=== PATIENT | male | born 1965 | race Caucasian/White ===

== ENCOUNTER → 2023-02-08 14:22 | Outpatient (BNVA) | payer MEDICAID, SELFPAY | PROVIDERS: PCP Nurse Practitioner; Visit Provider Internal Medicine Hypertension Specialist | DX: R10.9 Unspecified abdominal pain (principal) | CPT/HCPCS: 99212 ==

== ENCOUNTER 2023-02-08 14:23 | Outpatient (AMB) | payer MEDICAID, SELFPAY ==
[2023-02-08 14:23] VITALS: BP 122/88; PULSE 84; O2SAT 99; BMI 23.4
--- NOTE | 2023-02-08 14:23 | HO.NEPHOV_ITS ---
HPI HPI Comments History of Present Illness Details Middle-aged man with multiple somatic complaints history of for follow- up. At present he has no specific urinary complaints No polyuria polydipsia. No hematuria. He was recently worked up for abdominal pain and was found to have constipation. He has been prescribed laxatives which he is yet to start taking. PFSH Family History Mother Liver cancer Maternal Grandmother Breast cancer Social History Household Members Other:: Aunt Housing: House Alcohol intake: current Alcohol intake frequency: a few times a week Alcohol type: beer and wine Patient Tobacco Use Status: Never used Tobacco e-Cigarette/Vaping Use: Never Used Vital Signs 02/08/23 14:23 Height 5 ft 8 in Weight 154 lb 2 oz BMI 23.4 BP 122/88 Blood Pressure Location Lt brachial Position Sitting Pulse 84 Pulse Source Pulse Oximeter Pulse Oximetry (%) 99 Oxygen Delivery Method Room Air Physical Exam Vital Signs: Last Vital Signs Pulse 84 02/08/23 14:23 BP 122/88 02/08/23 14:23 Pulse Ox 99 02/08/23 14:23 Oxygen Delivery Method Room Air 02/08/23 14:23 BMI result Body Mass Index 23.4 Const General: comfortable Nutritional Appearance: well nourished Orientation/consciousness: patient oriented x3 HEENT Head: No normal to inspection Mouth: moist mucous membranes Eyes General: appearance normal, both eyes and all related structures Visual Mandel: normal visual mandel by confrontation Neck Neck: Yes supple and Yes no JVD Resp Effort & Inspection: normal respiratory effort and respiratory effort not decreased Auscultation: clear to auscultation bilaterally, no rales and rub present Cardio Jugular venous distension: no JVD Palpation: no palpable S3 and no palpable S4 Heart sounds: no rubs GI Inspection: Yes normal to inspection Palpation (GI): Soft to palpation and nontender Percussion: No Fluid wave present Auscultation: normal bowel sounds General: Yes no CVA tenderness Back/Spine/Pelvis Back: no CVA tenderness Skin General skin exam: no rashes or lesions noted Neuro General: patient oriented x3 Extrem General: Yes no pedal edema and No clubbing Assessment & Plan Assessment & Plan (1) Abdominal pain: Code(s): R10.9 - Unspecified abdominal pain Plan Middle-aged man with multiple somatic complaints. His abdominal pain likely due to constipation. He has no signs or symptoms of acute abdomen. I encouraged him to start taking the laxatives. Renal function has been stable. Blood pressure is acceptable. No changes are made today. Coding Level of Care Code Est Pt Level 2 (87267) Diagnoses Abdominal pain R10.9 Results Reviewed Results Reviewed: No recent lab results found Nephrology Results: No Data to Display
== END 2023-02-08 14:44 | disposition home or self-care (01) ==
PROVIDERS: PCP Nurse Practitioner; Visit Provider Internal Medicine Hypertension Specialist
DX: R10.9 Unspecified abdominal pain (principal)
CPT/HCPCS: 99212

== ENCOUNTER 2023-08-30 09:22 | Outpatient (AMB) | payer MEDICAID, SELFPAY ==
[2023-08-30 09:24] VITALS: BP 156/96; PULSE 99; O2SAT 98; BMI 24.2
--- NOTE | 2023-08-30 09:24 | HO.NEPHOV ---
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 At present he has no specific urinary complaints No polyuria polydipsia. No hematuria. He was recently worked up for abdominal pain and was found to have constipation. He has been prescribed laxatives which he is yet to start taking. 08/30/2023. Luís recently had an episode of gout on the left thumb. He was in [facility]. Serum creatinine was 1.11. He was given indomethacin and pain and swelling have improved [facility] Medical History (Updated 08/30/23 @ 09:41 by Edilberto Bustos MD) Fracture, mandible Surgical History History of arthroplasty of knee Family History Mother Liver cancer Maternal Grandmother Breast cancer Father Diabetes Hypertension Heart disease Social History Household Members Other:: Aunt Housing: House Alcohol intake: current Alcohol intake frequency: a few times a week Alcohol type: beer and wine Patient Tobacco Use Status: Never used Tobacco e-Cigarette/Vaping Use: Never Used Review of Systems Const Denies fever(s) and Denies weight loss Card Denies chest pain Resp Denies cough and Denies hemoptysis GI Denies abdominal pain, Denies diarrhea and Denies nausea Musc Denies back pain Neuro Denies focal weakness Physical Exam Vital Signs: Last Vital Signs Pulse 99 08/30/23 09:24 BP 156/96 H 08/30/23 09:24 Pulse Ox 98 08/30/23 09:24 Oxygen Delivery Method Room Air 08/30/23 09:24 BMI result Body Mass Index 24.2 Const General: comfortable; No acute distress Orientation/consciousness: patient oriented x3 Eyes General: appearance normal, both eyes and all related structures Visual Cohen: normal visual cohen by confrontation Neck Neck: Yes supple and Yes no JVD Resp Effort & Inspection: normal respiratory effort and respiratory effort not decreased Auscultation: rhonchi Cardio Palpation: no palpable S3 and no palpable S4 Heart sounds: no rubs GI Inspection: Yes normal to inspection Palpation (GI): Soft to palpation Percussion: Yes normal to percussion Auscultation: normal bowel sounds General: Yes no CVA tenderness Back/Spine/Pelvis Back: no CVA tenderness Skin General skin exam: no petechiae and no purpura Neuro General: patient oriented x3 and no focal motor deficits Extrem General: No clubbing and No edema Results Reviewed Results Reviewed: Labs from [facility] was reviewed as of August 2023 Serum electrolytes normal Serum creatinine 1.1 Nephrology Results: No Data to Display Assessment & Plan Assessment & Plan (1) CKD (chronic kidney disease): Code(s): N18.9 - Chronic kidney disease, unspecified Category: Medical (2) Abdominal pain: Code(s): R10.9 - Unspecified abdominal pain Category: Medical Plan Middle-aged man with history of multiple somatic complaints. History of abdominal pain likely due to constipation. Mild CKD Renal function has been stable. Creatinine is 1.1 Blood pressure is acceptable. No changes are made today. History of gout. Encouraged him to stay on a low purine diet Follow up with PCP Orders: Orders UA and rflx microscopic 11 Months N18.9 - Chronic kidney disease, unspecified Total Protein Urine Random 11 Months N18.9 - Chronic kidney disease, unspecified Creatinine Urine 11 Months N18.9 - Chronic kidney disease, unspecified Uric Acid 11 Months N18.9 - Chronic kidney disease, unspecified Basic Metabolic Panel 11 Months N18.9 - Chronic kidney disease, unspecified Complete Blood Count Auto Diff 11 Months N18.9 - Chronic kidney disease, unspecified Coding Level of Care Code Est Pt Level 4 (18272) Diagnoses CKD (chronic kidney disease) N18.9 Abdominal pain R10.9
== END 2023-08-30 09:45 | disposition home or self-care (01) ==
PROVIDERS: PCP Nurse Practitioner; Referring Provider Nurse Practitioner; Visit Provider Internal Medicine Hypertension Specialist
DX: N18.9 Chronic kidney disease, unspecified (principal); R10.9 Unspecified abdominal pain
CPT/HCPCS: 99214

== ENCOUNTER → 2023-08-30 09:22 | Outpatient (BNVA) | payer MEDICAID, SELFPAY | PROVIDERS: PCP Nurse Practitioner; Visit Provider Internal Medicine Hypertension Specialist | DX: R10.9 Unspecified abdominal pain (principal); N18.9 Chronic kidney disease, unspecified | CPT/HCPCS: 99212 ==

== ENCOUNTER 2023-11-14 11:16 | Outpatient (AMB) | payer MEDICAID, SELFPAY ==
--- NOTE | 2023-11-14 11:21 | MHC.OFFVIS ---
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 Denies any recent trauma, injury or falls. Patient reports history of back injections with good relief but can not recall if this was done at [facility] or [facility] Pain management. He completed spine imaging at [facility], this results are not available today. Patient was referred for lumbar spine MRI by his PCP but did not completed. Reports he completed physical therapy 3 years ago with minimal pain relief. Currently he is unable to pursue PT due to significant low back pain. Back pain is localized to lower back, worse on the right side and increases with bending, forward flexion, ROM, walking, and prolonged standing or sitting. Pain affects his daily functioning and mobility, mood, sleep, social interactions and quality of life. Denies previous spine surgery. He is awaiting hernia repair surgery. Patient also had recent gout exacerbation and uses indomethacin prn. Denies any fever or chills, weight loss, abdominal or groin pain, foot drop, bladder or bowel dysfunction or saddle anesthesia. Patient lives at home with his 2 adult sons who smoke and was recently diagnosed with asthma. Patient reports his temporary resides with his sister she undergoing treatments and upcoming bilateral lung transplant in [place] and requires smoke-free environment. Patient receives [facility] and takes public transportation. Location: Lower back, +gout pain (feet, thumb, elbow) Duration: Chronic pain for >15 years Characteristics of symptom or complaint: Shooting, throbbing, burning, stabbing, aching, radiating, spasming Aggravating or associated factors: Movements, bending, sitting, standing, movements, walking Relieving factors: Tried gabapentin, Tylenol, lidocaine patch, duloxetine, heat therapy Treatment: PT, back injections at [facility] or [facility] Medical History (Updated 11/14/23 @ 12:00 by JOHNY Correa) Subarachnoid hemorrhage Food insecurity Major depressive disorder Apneic episode Reactive airway disease without complication Constipation Hearing difficulty of both ears BPH (benign prostatic hyperplasia) Stage 3 chronic kidney disease Excessive anger Memory loss Swelling of left knee joint Vitamin D deficiency Carpal tunnel syndrome on both sides H/O head injury Chronic bilateral low back pain with bilateral sciatica Chronic gout of multiple sites Fracture, mandible Surgical History History of arthroplasty of knee Family History Mother Liver cancer Maternal Grandmother Breast cancer Father Diabetes Hypertension Heart disease Social History (Updated 11/14/23 @ 13:14 by JOHNY Correa) Household Members: Children Housing: House Alcohol intake: current Alcohol intake frequency: a few times a week Alcohol type: beer, wine and hard liquor Patient Tobacco Use Status: Never used Tobacco e-Cigarette/Vaping Use: Never Used Second Hand Smoke Exposure: Yes Review of Systems Const All systems reviewed & are unremarkable except as noted in HPI and below Physical Exam Vital Signs: Last Vital Signs Pulse Ox 97 11/14/23 11:26 Oxygen Delivery Method Room Air 11/14/23 11:26 BMI result Body Mass Index 23.6 General: Appears afebrile. Moderate distress due to back pain. Alert and oriented. Mood and affect appropriate. Follows and participates in conversation appropriately. Respiratory effort is unlabored. No cough. Able to transition from sit to stand unassisted. Ambulates with bilaterally normal heel strike and toe off. Antalgic gait, no limping. Unable to perform lumbar ROM due to pain. General: Yes no CVA tenderness Back/Spine/Pelvis Other: Limited lumbar ROM due to pain. Mildly antalgic gait. No limping. Lumbar flexion, axial rotations, and bending forward reproduces moderate pain. Demonstrates 5/5 strength of quadriceps bilaterally as well as flexion/dorsiflexion of bilateral feet against resistance. 2+ pedal pulses bilaterally. Seated straight leg rise with dorsiflexion positive bilaterally. +1 patellar and achilles reflexes bilaterally. Facet loading test positive bilaterally. Benjamín sign positive on the right, Kamaljit?s reproduces lateral hip pain, not back pain. No groin pain with I/E hip rotations. Valsalva maneuver negative. Back: no CVA tenderness Cervical Spine: loss of normal cervical lordosis, cervical muscular tenderness, pain with cervical ROM and No Cervical spine tenderness Thoracic/Lumbar Spine: thoracic and lumbar spine normal to inspection, No Thoracic/lumbar spine scar(s), Lasegue's sign positive (left>right in L5-S1 distribution) bilateral, pain with thoraco-lumbar ROM, paraspinal muscle tenderness, thoraco-lumbar ROM limited, thoracic spinal tenderness and lumbar spinal tenderness Pelvis: no buttock tenderness Sacroiliac joints: on the right tender to palpation and on the left nontender Results Reviewed Results Reviewed: No imaging reports are available for review. Assessment & Plan Assessment & Plan (1) Chronic bilateral low back pain with bilateral sciatica: Code(s): M54.42 - Lumbago with sciatica, left side; M54.41 - Lumbago with sciatica, right side; G89.29 - Other chronic pain Category: Medical (2) Lumbar spondylosis: Code(s): M47.816 - Spondylosis without myelopathy or radiculopathy, lumbar region Category: Medical (3) Lumbar degenerative disc disease: Code(s): M51.36 - Other intervertebral disc degeneration, lumbar region Category: Medical (4) Mid back pain: Code(s): M54.9 - Dorsalgia, unspecified Category: Medical Plan Obtain past medical records from [facility] management and [facility] to review past procedures and injections. Patient is not able to pursue physical therapy due to moderate-severe pain which affects his ADLs, mobility and sleep. Lumbar spine and SIJ imaging to assess degree of degenerative changes, any subluxation, listhesis, compression fractures or pars defects. MRI of the cervical and lumbar? spine to assess for neural integrity and compression. Patient requests imaging to be completed at [facility] closer to his home. Discussed interventional treatments for axial, discogenic and radicular symptoms. Continue Tylenol, lidocaine patches, gabapentin, heat therapy, activity modifications, good posture and adequate hydration. All questions and concerns have been answered and patient agreed with the plan. Follow up for MRI/xray results and sooner as needed. Orders: Orders MR lumbar spine wo con 11/14/23 G89.29 - Other chronic pain, M47.816 - Spondylosis without myelopathy or radiculopathy, lumbar region, M51.36 - Other intervertebral disc degeneration, lumbar region, M54.41 - Lumbago with sciatica, right side, M54.42 - Lumbago with sciatica, left side XR lumbar spine 4V min 11/14/23 G89.29 - Other chronic pain, M47.816 - Spondylosis without myelopathy or radiculopathy, lumbar region, M51.36 - Other intervertebral disc degeneration, lumbar region, M54.41 - Lumbago with sciatica, right side, M54.42 - Lumbago with sciatica, left side XR thoracic spine 3V 11/14/23 M54.9 - Dorsalgia, unspecified Coding Level of Care Code New Pt Level 4 (72696) Complex EM visit Add On G2211 Diagnoses Chronic bilateral low back pain with bilateral sciatica M54.42; M54.41; G89.29 Lumbar spondylosis M47.816 Lumbar degenerative disc disease M51.36 Mid back pain M54.9
[2023-11-14 11:26] VITALS: O2SAT 97; BMI 23.6
== END 2023-11-14 11:57 | disposition home or self-care (01) ==
PROVIDERS: PCP Nurse Practitioner; Visit Provider Nurse Practitioner Family
DX: M54.42 Lumbago with sciatica, left side (principal); M54.41 Lumbago with sciatica, right side; G89.29 Other chronic pain; M47.816 Spondylosis without myelopathy or radiculopathy, lumbar region; M51.36 Other intervertebral disc degeneration, lumbar region; M54.9 Dorsalgia, unspecified
CPT/HCPCS: 99204

== ENCOUNTER → 2023-11-14 11:16 | Outpatient (BNVA) | payer MEDICAID, SELFPAY | PROVIDERS: PCP Nurse Practitioner; Visit Provider Nurse Practitioner Family | DX: M54.42 Lumbago with sciatica, left side (principal); M54.41 Lumbago with sciatica, right side; M47.816 Spondylosis without myelopathy or radiculopathy, lumbar region; M51.36 Other intervertebral disc degeneration, lumbar region; M54.9 Dorsalgia, unspecified; G89.29 Other chronic pain | CPT/HCPCS: 99212 ==

== ENCOUNTER 2024-01-29 14:13 | Outpatient (AMB) | payer MEDICAID, SELFPAY ==
--- NOTE | 2024-01-29 14:43 | A.OFFVIS_ITS ---
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 He continues to endorse low back pain with radiation into his lower extremities, left leg worse than the right with associated numbness and tingling sensations. He reports recently going to [facility] ER due to left-sided flank pain and muscle strain in the setting of excessive coughing and cold symptoms. Patient reports left flank pain has been resolving. However, he is experiencing significant lumbar spinal stenosis related pain which limits his walking capacity, ADLs, sleep and functioning. MRI and x-ray reports were discussed with patient today. Patient is interested to undergo caudal ROMARIO with fluoroscopy guidance prior considering neurosurgical evaluation. Denies any recent cough, cold, infection, fever, bladder or bowel dysfunction or any other significant changes in medical history since last office visit. PRIOR: Patient is a pleasant 58-year-old male with complex medical history including chronic gout of multiple sites, chronic bilateral low back pain is bilateral sciatic, history of head injury, carpal tunnel syndrome bilateral, memory loss, CKD, depression, presents today for initial evaluation for worsening chronic low back pain without radicular symptoms. Denies any recent trauma, injury or falls. Patient reports history of back injections with good relief but can not recall if this was done at [facility] or [facility] Pain management. He completed spine imaging at [facility], this results are not available today. Patient was referred for lumbar spine MRI by his PCP but did not completed. Reports he completed physical therapy 3 years ago with minimal pain relief. Currently he is unable to pursue PT due to significant low back pain. Back pain is localized to lower back, worse on the right side and increases with bending, forward flexion, ROM, walking, and prolonged standing or sitting. Pain affects his daily functioning and mobility, mood, sleep, social interactions and quality of life. Denies previous spine surgery. He is awaiting hernia repair surgery. Patient also had recent gout exacerbation and uses indomethacin prn. Denies any fever or chills, weight loss, abdominal or groin pain, foot drop, bladder or bowel dysfunction or saddle anesthesia. Patient lives at home with his 2 adult sons who smoke and was recently diagnosed with asthma. Patient reports his temporary resides with his sister she undergoing treatments and upcoming bilateral lung transplant in [place] and requires smoke-free environment. Patient receives [facility] and takes public transportation. Location: Lower back, +gout pain (feet, thumb, elbow) Duration: Chronic pain for >15 years Characteristics of symptom or complaint: Shooting, throbbing, burning, stabbing, aching, radiating, spasming Aggravating or associated factors: Movements, bending, sitting, standing, movements, walking Relieving factors: Tried gabapentin, Tylenol, lidocaine patch, duloxetine, heat therapy Treatment: PT, back injections at [facility] or [facility] Medical History (Updated 01/29/24 @ 20:34 by JOHNY Correa) Discogenic low back pain Thoracic and lumbosacral neuritis Cervical spondylosis Subarachnoid hemorrhage Food insecurity Major depressive disorder Apneic episode Reactive airway disease without complication Constipation Hearing difficulty of both ears BPH (benign prostatic hyperplasia) Stage 3 chronic kidney disease Excessive anger Memory loss Swelling of left knee joint Vitamin D deficiency Carpal tunnel syndrome on both sides H/O head injury Chronic bilateral low back pain with bilateral sciatica Chronic gout of multiple sites Fracture, mandible Surgical History History of arthroplasty of knee Family History Mother Liver cancer Maternal Grandmother Breast cancer Father Diabetes Hypertension Heart disease Social History Household Members: Children Housing: House Alcohol intake: current Alcohol intake frequency: a few times a week Alcohol type: beer, wine and hard liquor Patient Tobacco Use Status: Never used Tobacco e-Cigarette/Vaping Use: Never Used Second Hand Smoke Exposure: Yes Review of Systems Const All systems reviewed & are unremarkable except as noted in HPI and below Physical Exam Vital Signs: Last Vital Signs Pulse 106 H 01/29/24 14:48 BP 137/83 01/29/24 14:48 Pulse Ox 97 01/29/24 14:48 Oxygen Delivery Method Room Air 01/29/24 14:48 BMI result Body Mass Index 23.6 General: Appears afebrile. Moderate distress due to back pain. Alert and oriented. Mood and affect appropriate. Follows and participates in conversation appropriately. Respiratory effort is unlabored. No cough. Able to transition from sit to stand unassisted. Ambulates with bilaterally normal heel strike and toe off but with pain. General: Yes no CVA tenderness Back/Spine/Pelvis Other: Limited lumbar ROM due to pain. Mildly antalgic gait. No limping. Lumbar fle xion, axial rotations, and bending forward reproduces moderate pain. Demonstrates 5/5 right and 4/5 left strength of quadriceps bilaterally as well as flexion/dorsiflexion of bilateral feet against resistance. 2+ pedal pulses bilaterally. Seated straight leg rise with dorsiflexion positive bilaterally, left>right. +1 patellar and achilles reflexes bilaterally. Facet loading test positive bilaterally. Benjamín sign positive on the right, Kamaljit?s reproduces lateral hip pain, not back pain. No groin pain with I/E hip rotations. Valsalva maneuver negative. Back: no CVA tenderness Cervical Spine: loss of normal cervical lordosis, cervical muscular tenderness, pain with cervical ROM and No Cervical spine tenderness Thoracic/Lumbar Spine: thoracic and lumbar spine normal to inspection, No Thoracic/lumbar spine scar(s), Lasegue's sign positive (left>right) bilateral and localized, pain with thoraco-lumbar ROM, paraspinal muscle tenderness, thoraco-lumbar ROM limited, No thoracic spinal tenderness and lumbar spinal tenderness Pelvis: no buttock tenderness Sacroiliac joints: on the right tender to palpation and on the left nontender Extrem General: Yes capillary refill normal, Yes no clubbing, cyanosis or edema and Yes no calf tenderness Results Reviewed Results Reviewed: MR SPINE LUMBAR without CONTRAST 11/27/23 at [facility] INDICATION: Lower back pain. TECHNIQUE: Unenhanced multiplanar, multisequence MR imaging of the lumbar spine. COMPARISON: MR L-Spine 05/26/2023. FINDINGS: There is mild dextroscoliosis of the lumbar spine. There is 3 mm anterolisthesis of L5 with respect to S1. Intervertebral disc space narrowing is seen from L1 through L5. Degenerative endplate changes are seen at L4-5 and L5- S1. The conus terminates at T12-L1. Vertebral heights are well maintained. Bone marrow signal is within normal limits, and no suspicious osseous lesion is identified. Conus medullaris is unremarkable. Paraspinal soft tissues and visualized portions of the abdomen and pelvis are unremarkable. At L1-2 there is broad-based central disc herniation with bilateral facet and ligamentum flavum hypertrophy. There is mild right and moderate left neural foraminal narrowing. No central canal stenosis is seen. At L2-3 there is broad-based central disc herniation with bilateral facet and ligamentum flavum hypertrophy. There is mild left and moderate to severe right neural foraminal narrowing. No central canal stenosis is seen. At L3-4 there is broad-based central disc herniation with mild canal stenosis. There is facet and ligamentum flavum hypertrophy. There is mild to moderate right and mild left neural foraminal narrowing. There is effacement of the ventral thecal sac. At L4-5 there is broad-based right subarticular disc protrusion with moderate left and moderate to severe right neural foraminal narrowing. There is canal stenosis mainly on the right side. Facet hypertrophy is noted. There is narrowing of the right lateral recess. There is impingement on the exiting and descending right-sided nerve roots. At L5-S1 there is broad-based central disc herniation with moderate left and severe right neural foraminal narrowing. There is impingement on the exiting right nerve root. No central canal stenosis is seen. Bilateral facet hypertrophy is noted. IMPRESSION: 1. Dextroscoliosis of the lumbar spine is seen. There is grade 1, 3 mm anterolisthesis of L5 with respect to S1. 2. At L1-2 there is mild right and moderate left neural foraminal narrowing. 3. At L2-3 there is a broad-based central disc herniation. Mild left and moderate to severe right neural foraminal narrowing is seen. 4. At L3-4 there is mild canal stenosis. Mild to moderate right and mild left neural foraminal narrowing is seen. 5. At L4-5 there is a broad-based right dorsal disc protrusion. There is moderate to severe right and moderate left neural foraminal narrowing. Right-sided canal stenosis is seen. There is also narrowing of the right lateral recess. There is impingement on the exiting and descending right-sided nerve roots. 6. At L5-S1 there is moderate left and severe right neural foraminal narrowing. There is impingement on the exiting right nerve root. 7. Bilateral facet hypertrophy seen throughout the lumbar spine. XR SPINE THORACIC 2 views, XR SPINE LUMBAR MIN 4 VIEWS 01/26/24 at [facility] INDICATION: Lumbar radiculopathy. Low back pain. COMPARISON: MR lumbar 11/27/2023. FINDINGS: THORACIC SPINE: There is mild dextroscoliosis of the thoracic spine. There is mild osteophyte formation present in the thoracic spine. There are no fractures or dislocations in the thoracic spine. LUMBAR SPINE: There is mild dextroscoliosis of the lumbar spine. There is mild osteophyte formation present lower visualized thoracic and lumbar spine. There is no evidence for spondylolysis in the lumbar spine. There is severe loss of disc space height at L1-2 which has worsened since MRI 11/27/2023. There is severe loss of disc space height at L2-3 which has worsened since MRI 11/27/2023. There is moderate loss of disc space height at L3-4 which is similar to that seen on MRI 11/27/2023. There is severe loss of disc space height at L4-5 which has worsened since MR 11/27/2023. There is severe loss of disc space height at L5-S1 which has worsened since MRI 11/27/2023. There is 0.6 cm of retrolisthesis of L3 with respect to L4, which is a new finding since MR 11/27/2023. There is 0.5 cm of anterolisthesis of L5 with respect to S1 which is similar to that seen on MRI 11/27/2023. Contrast is seen being excreted by the right and left kidneys from previously administered intravenous contrast IMPRESSION: 1.Mild dextroscoliosis of the thoracic spine. 2.Mild spondylosis of the thoracic spine. 3.Mild dextroscoliosis of the lumbar spine. 4.Mild spondylosis of the lumbar spine. 5.L1-2 and L2-3 intervertebral discs show severe degenerative disease, which has worsened since MRI 11/27/2023. 6.L3-4 intervertebral disc shows moderate degenerative disc disease, similar to that seen on MRI 11/27/2023. 7.L4-5 and L5-S1 intervertebral discs show severe degenerative disc disease which have worsened since MRI 11/27/2023. 8.There is 0.6 cm retrolisthesis of L3 with respect L4, a new finding since MRI 11/27/2023. 9.There is 0.5 cm anterolisthesis of L5 with respect S1 similar to that seen on MRI 11/27/2023. Assessment & Plan Assessment & Plan (1) Chronic bilateral low back pain with bilateral sciatica: Code(s): M54.42 - Lumbago with sciatica, left side; M54.41 - Lumbago with sciatica, right side; G89.29 - Other chronic pain Category: Medical (2) Lumbar spondylosis: Code(s): M47.816 - Spondylosis without myelopathy or radiculopathy, lumbar region Category: Medical (3) Lumbar degenerative disc disease: Code(s): M51.36 - Other intervertebral disc degeneration, lumbar region Category: Medical (4) Lumbar spinal stenosis: Code(s): M48.061 - Spinal stenosis, lumbar region without neurogenic claudication Category: Medical (5) Discogenic low back pain: Code(s): M51.360 - Other intervertebral disc degeneration, lumbar region with discogenic back pain only Category: Medical Plan Lumbar and thoracic spine xray and MRI imaging reports were discussed with patient today. Patient is not able to pursue physical therapy due to moderate- severe pain which affects his ADLs, mobility and sleep due to significant spinal stenosis and discogenic related low back apin. We will proceed with Caudal ROMARIO with catheter with local and fluoroscopy. Expectations, risks and benefits were reviewed. Patient is aware he will be contacted to schedule this procedure. Continue Tylenol, lidocaine patches, gabapentin, heat therapy, activity modifications, good posture and adequate hydration. Short script of oxycodone provided for severe pain while patient awaits for injection. Narcan sent with oxycodone, discussed its use and administration. All questions and concerns have been answered and patient agreed with the plan. Follow up after injection and sooner as needed. Medications: New oxycodone Partial Fill upon patient request. 5 mg PO BID 10 days PRN 20 tabs 0RF pain (scale score 7-10) G89.29 - Other chronic pain, M48.061 - Spinal stenosis, lumbar region without neurogenic claudication, M51.36 - Other intervertebral dis c degeneration, lumbar region, M54.41 - Lumbago with sciatica, right side, M54.42 - Lumbago with sciatica, left side naloxone 4 mg/actuation (Narcan) spray 1 dose into ONE nostril; alternate nostrils w each dose until help arrives 4 mg intranasal Q2M PRN 2 ea 0RF opioid overdose M48.061 - Spinal stenosis, lumbar region without neurogenic claudication Coding Level of Care Code Est Pt Level 4 (50792) Complex EM visit Add On G2211 Diagnoses Chronic bilateral low back pain with bilateral sciatica M54.42; M54.41; G89.29 Lumbar spondylosis M47.816 Lumbar degenerative disc disease M51.36 Lumbar spinal stenosis M48.061 Discogenic low back pain M51.360
[2024-01-29 14:48] VITALS: BP 137/83; PULSE 106; O2SAT 97; BMI 23.6
== END 2024-01-29 15:17 | disposition home or self-care (01) ==
PROVIDERS: PCP Nurse Practitioner; Visit Provider Nurse Practitioner Family
DX: M54.42 Lumbago with sciatica, left side (principal); M54.41 Lumbago with sciatica, right side; G89.29 Other chronic pain; M47.816 Spondylosis without myelopathy or radiculopathy, lumbar region; M51.369 Other intervertebral disc degeneration, lumbar region without mention of lumbar back pain or lower extremity pain; M48.061 Spinal stenosis, lumbar region without neurogenic claudication; M51.360 Other intervertebral disc degeneration, lumbar region with discogenic back pain only
CPT/HCPCS: 99214

== ENCOUNTER → 2024-01-29 14:13 | Outpatient (BNVA) | payer MEDICAID, SELFPAY | PROVIDERS: PCP Nurse Practitioner; Visit Provider Nurse Practitioner Family | DX: M54.41 Lumbago with sciatica, right side (principal); M54.42 Lumbago with sciatica, left side; G89.29 Other chronic pain; M48.061 Spinal stenosis, lumbar region without neurogenic claudication; M47.816 Spondylosis without myelopathy or radiculopathy, lumbar region; M51.360 Other intervertebral disc degeneration, lumbar region with discogenic back pain only | CPT/HCPCS: 99212 ==

== ENCOUNTER 2024-02-22 05:58 | Outpatient (REF) | payer MEDICAID, SELFPAY | END 2024-02-22 05:59 | disposition home or self-care (01) | LOC: CF 05:58 | PROVIDERS: Visit Provider Internal Medicine | DX: Z13.89 Encounter for screening for other disorder (principal) ==

== ENCOUNTER 2024-03-21 08:48 | Outpatient (REF) | payer MEDICAID, SELFPAY | END 2024-03-21 08:49 | disposition home or self-care (01) | LOC: CF 08:48 | PROVIDERS: PCP Nurse Practitioner; Visit Provider Internal Medicine | DX: Z13.89 Encounter for screening for other disorder (principal) ==

== ENCOUNTER 2024-04-11 06:30 | Outpatient (REF) | payer MEDICAID, SELFPAY ==
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
--- OUTSIDE RECORDS SUMMARY | 2024-04-11 06:33 | XMS_ITS | Clinical Summary ---
Author Organization [facility] [employer] Address [address] [place] [address] Phone Care Team Providers Care Tubular Riveter Name Role Phone Sepideh Galeas JOHNY Primary Care Provider [phone] Allergies No known active allergies Medications Medication Sig Dispensed Refills Start Date End Date Status cyclobenzaprine (FLEXERIL) 10 mg tablet Take 1 tablet (10 mg total) by mouth 3 (three) times a day if needed for muscle spasms for up to 5 days. 15 each 01/26/2024 Active Active Problems No known active problems Encounters Date Type Department Care Team Description 01/26/2024 10:13 AM EST - 01/26/2024 1:37 PM [facility] Emergency [address] [place] [id number] Gerard Palumbo MD Acute left-sided thoracic back pain (Primary Dx); Rhinovirus Discharge Disposition: Home or Self Care from Last 3 Months Medical History Medical History Date Comments BPH with obstruction/lower u rinary tract symptoms 02/11/2020 DX:BPH with obstruction/lowe r urinary tract symptoms Prediabetes 02/11/2020 DX:Prediabetes Hyperlipidemia 02/11/2020 DX:Hyperlipidemi a CKD (chronic kidney disease) 02/11/2020 DX: CKD (chronic kidney disease) Hearing loss 02/11/2020 DX:Hearing loss; COMMENT: Bilateral Vitamin D deficiency 02/11/2020 DX:Vitamin D deficiency Carpal tunnel syndrome 02/11/2020 DX:Carpal tunnel syndrome Gout 02/11/2020 DX:Gout Depression with anxiety 02/11/2020 DX:Depre ssion with anxiety History of subarachnoid hemorrhage 02/11/2020 DX:History of subarachnoid hemorrhage; COMMENT: 2016 Memory loss 02/11/2020 DX:Memory loss Chronic bilateral low back p ain with bilateral sciatica 02/11/2020 DX:Chronic bilateral low sita k pain with bilateral sciatica SHAY (dyspnea on exertion) 02/11/2020 DX:SHAY (dyspnea on exertion) Sleep disorder 02/11/2020 DX:Sleep disorde r; COMMENT: Choking while sleeping Family History Medical History Relation Name Comments Asthma Brother Diabetes Father MO/CABG, Gout Heart attack Father's side Uncle Breast cancer Maternal Grandmother COPD Mother Alzheimer's Dis ease, Lung cancer Mother's side Aunt Heart attack Paternal Grandfather Relation Name Status Comments Brother Father Father's side Maternal Grandmother Mother Mother's side Paternal Grandfather Social History Tobacco Use Types Packs/Day Years Used Date Smoking Tobacco: Never Smokeless Tobacco: Never Alcohol Use Standard Drinks/Week Comments Yes 0 (1 standard drink = 0.6 oz pur e alcohol) Sex and Gender Information Value Date Recorded Sex Assigned at Male 01/26/2024 10:46 AM EST Gender Identity Male 01/26/2024 10:46 AM EST Sexual Orientation Straight 01/26/2024 10 :46 AM EST Job Start Date Occupation Industry Not on file Not on file Not on file Obstetrics History Last Filed Vital Signs Vital Sign Reading Time Taken Comments Blood Pressure 143/93 01/26/2024 11:48 AM EST Pulse 76 01/26/2024 11:48 AM EST Temperature 36.7 ??C (98.1 ??F) 01/26/2024 11:[address] Respiratory Rate 16 01/26/2024 11:48 AM EST Oxygen Saturation 98% 01/26/2024 11:48 AM EST Inhaled Oxygen Concentration - - Weight 70.3 kg (155 lb) 01/26/2024 10:05 AM EST Height 170.2 cm (5' 7 ) 01/26/2024 10:05 AM EST Body Mass Index 24.28 01/26/2024 10:05 AM EST Plan of Treatment Health Maintenance Due Date Last Done Comments Pneumococcal Vaccine: Pediatrics (0 to 5 Years) and At-Risk Patients (6 to 64 Years) (1 of 2 - PCV) 1970 Colorectal Cancer Screening: Colonoscopy 02/02/2022 Social Influencers of Health Screening 02/02/2022 Influenza Vaccine (#1) 2023 Hypertension/CHF/CAD Annual BMP Blood Test 01/25/2025 01/26/2024, 09/25/2023 Depression Screening 04/05/2025 04/05/2024 Cholesterol Screening (Lipid Panel) 06/07/2027 06/06/2022, 06/06/2022, 09/10/2021 DTaP,Tdap,and Td Vaccines (5 - Td or Tdap) 10/14/2029 10/15/2019, 06/06/2016, 07/16/2013, Additional history exists RSV Immunization Patients 60+ Years Old (1 - 1-dose 75+ series) 08/22/2039 HIV Screening Completed 04/04/2017 Hepatitis C Screening Completed 04/04/2017 Zoster Vaccines Completed 12/10/2019, 10/15/2019 Hepatitis B Vaccines Completed 11/03/2022, 06/07/19 COVID-19 Vaccine Completed 11/27/2023, 05/2022, 12/16/2020, Additional history exists HIB Vaccines Aged Out No longer eligi ble based on patient's age to complete this topic HPV Vaccines Aged Out No longer eligi ble based on patient's age to complete this topic Hepatitis A Vaccines Aged Out No long er eligible based on patient's age to complete this topic IPV Vaccines Aged Out No longer eligi ble based on patient's age to complete this topic MMR Vaccines Aged Out No longer eligi ble based on patient's age to complete this topic Meningococcal ACWY Vaccine Aged Out N o longer eligible based on patient's age to complete this topic RSV Immunization Patients Under 20 months Aged Out No longer eligible based on patient's age to complete this topic Varicella Vaccines Aged Out No longer eligible based on patient's age to complete this topic Procedures Procedure Name Priority Date/Time Associated Diagnosis Comments BIGGS URINE CULTURE TUBE STAT 01/26/2024 12:39 PM EST URINALYSIS WITH REFLEX MICROSCOPIC AND CULTURE STAT 01/26/2024 12:39 PM EST URINALYSIS WITH REFLEX MICROSCOPIC AND CULTURE STAT 01/26/2024 12:[address] CHEST/ABDOMEN/PELVIS W CONTRAST STAT 01/26/2024 11:28 AM EST RESPIRATORY VIRUS PANEL MOLECULAR STUDY STAT 01/26/2024 11:04 AM EST CBC WITH AUTO DIFFERENTIAL STAT 01/26/2024 10:22 AM EST COMPREHENSIVE METABOLIC PANEL STAT 01/26/2024 10:22 AM EST CBC AND DIFFERENTIAL STAT 01/26/2024 10:22 AM EST from Last 3 Months Results * (ABNORMAL) Urinalysis with reflex microscopic and culture (01/26/2024 12:39 PM EST) Specific [place] Urine 1.036(H) 1.003 - 1.030 LAB URINALYSIS - AUTOMATED METHOD 01/26/2024 12:48 PM [facility] pH, Urine 7.0 5.0 - 8.0 pH LAB URINALYSIS - AUTOMATED METHOD 01/26/2024 12:48 PM [facility] Leukocytes, Urine Negative Negative LAB URINALYSIS - AUTOMATED METHOD 01/26/2024 12:48 PM [facility] Nitrite, Urine Negative Negative LAB URINALYSIS - AUTOMATED METHOD 01/26/2024 12:48 PM [facility] Protein, Urine Negative <=Trace mg/dL LAB URINALYSIS - AUTOMATED METHOD 01/26/2024 12:48 PM [facility] Glucose, Urine Negative Negative mg/dL LAB URINALYSIS - AUTOMATED METHOD 01/26/2024 12:48 PM [facility] Ketones, Urine Negative Negative mg/dL LAB URINALYSIS - AUTOMATED METHOD 01/26/2024 12:48 PM [facility] Urobilinogen, Urine 0.2 0.2 - 1.0 mg/dL LAB URINALYSIS - AUTOMATED METHOD 01/26/2024 12:48 PM [facility] Bilirubin, Urine Negative Negative LAB URINALYSIS - AUTOMATED METHOD 01/26/2024 12:[address] [facility] Blood, Urine Negative Negative LAB URINALYSIS - AUTOMATED METHOD 01/26/2024 12:[address] [facility] Urine Urine specimen obtained by clean catch procedure / Unknown Non-blood Collection / Unknown 01/26/2024 12:39 PM EST 01/26/2024 12:41 PM EST Gerard Palumbo MD LAB URINE ORDERABLES [facility] [address] [place] [address], [place] [phone] * Biggs urine culture tube (01/26/2024 12:39 PM EST) Extra Tube Hold for add-ons. 01/26/2024 2:[address] [facility] Comment:Auto resulted. Urine Urine specimen obtained by clean catch procedure / Unknown Non-blood Collection / Unknown 01/26/2024 12:39 PM EST 01/26/2024 12:41 PM EST Gerard Palumbo MD LAB URINE ORDERABLES Performing Organization Address City/[facility]/ZIP Co de Phone Number [facility] [address] [place] [address], [place] [phone] * CT Chest/Abdomen/Pelvis w Contrast (01/26/2024 11:28 AM EST) Anatomical Region Laterality Modality Body Computed Tomogra phy 01/26/2024 12:0 4 PM EST Impressions 01/26/2024 12:14 PM EST 1. ??No acute inflammatory process. 2. ??No renal stone or hydronephrosis identified. -------- FINAL REPORT -------- Dictated By: Sebastian Lyles Dictated Date: 01/26/2024 12:04 ET Assigned Physician: Sebastian Lyles Reviewed and Electronically Signed By: Sebastian Lyles Signed Date: 01/26/2024 12:14 ET Workstation ID: [id number] Transcribed By: Self Edit Transcribed Date: 01/26/2024 12:04 ET Narrative 01/26/2024 12:14 PM EST PROCEDURE: CT chest, abdomen and pelvis with IV contrast INDICATION: Flank pain. ??Kidney stone suspected. TECHNIQUE: Chest, abdomen and pelvis CT following the intravenous administration of 90cc ISOVUE. Multiplanar reformats were created and interpreted. The examination was performed utilizing dose reduction techniques. DOSE: CTDIvol: 12.5mGy. ??Total exam DLP: 812.3mGy-cm COMPARISON: ??CT abdomen and pelvis February 2023. ??CT chest March 2018. FINDINGS: ?? CT CHEST: LUNGS/PLEURA: No acute infiltrate. ??Minimal basilar atelectasis. ??No effusion. VASCULAR: Minimal plaque is noted without aneurysm.. MEDIASTINUM: No mediastinal or hilar lymphadenopathy. Heart is normal in size. No pericardial effusion. CHEST WALL: No axillary lymphadenopathy. BONES: Mild degenerative changes of the spine. CT ABDOMEN AND PELVIS: HEPATOBILIARY: Liver appears normal. No biliary dilatation. SPLEEN: Spleen appears normal PANCREAS: No focal mass or ductal dilatation. ADRENALS: Appear normal without nodules KIDNEYS/URETERS: No hydronephrosis, stones, or mass. PELVIC ORGANS/BLADDER: Bladder appears normal. RETROPERITONEUM: No retroperitoneal lymphadenopathy. VESSELS: Atherosclerotic plaque without aneurysm. BOWEL: Bowel appears within normal limits. ??Appendix appears normal. MESENTERY: Appears normal. No ascites. BONES AND SOFT TISSUES: Degenerative changes in both hips. ??Degenerative changes are noted throughout the spine. ??Left inguinal hernia containing only minimal fat. Procedure Note Sebastian Lyles MD - 01/26/2024 PROCEDURE: CT chest, abdomen and pelvis with IV contrast INDICATION: Flank pain. Kidney stone suspected. TECHNIQUE: Chest, abdomen and pelvis CT following the intravenousadministration of 90cc ISOVUE. Multiplanar reformats were created andinterpreted. The examination was performed utilizing dose reductiontechniques. DOSE: CTDIvol: 12.5mGy. Total exam DLP: 812.3mGy-cm COMPARISON: CT abdomen and pelvis February 2023. CT chest March2018. FINDINGS: CT CHEST: LUNGS/PLEURA: No acute infiltrate. Minimal basilar atelectasis. Noeffusion. VASCULAR: Minimal plaque is noted without aneurysm.. MEDIASTINUM: No mediastinal or hilar lymphadenopathy. Heart is normal insize. No pericardial effusion. CHEST WALL: No axillary lymphadenopathy. BONES: Mild degenerative changes of the spine. CT ABDOMEN AND PELVIS: HEPATOBILIARY: Liver appears normal. No biliary dilatation. SPLEEN: Spleen appears normal PANCREAS: No focal mass or ductal dilatation. ADRENALS: Appear normal without nodules KIDNEYS/URETERS: No hydronephrosis, stones, or mass. PELVIC ORGANS/BLADDER: Bladder appears normal. RETROPERITONEUM: No retroperitoneal lymphadenopathy. VESSELS: Atherosclerotic plaque without aneurysm. BOWEL: Bowel appears within normal limits. Appendix appears normal. MESENTERY: Appears normal. No ascites. BONES AND SOFT TISSUES: Degenerative changes in both hips. Degenerativechanges are noted throughout the spine. Left inguinal hernia containingonly minimal fat. IMPRESSION: 1. No acute inflammatory process. 2. No renal stone or hydronephrosis identified. -------- FINAL REPORT -------- Dictated By: Sebastian Lyles Dictated Date: 01/26/2024 12:04 ET Assigned Physician: Sebastian Lyles Reviewed and Electronically Signed By: Sebastian Lyles Signed Date: 01/26/2024 12:14 ET Workstation ID: [id number] Transcribed By: Self Edit Transcribed Date: 01/26/2024 12:04 ET Gerard Palumbo MD [facility] CT PROCEDURES * (ABNORMAL) Respiratory virus panel molecular study (01/26/2024 11:04 AM EST) Pathologist [facility] Adenovirus Detection by PCR Not Detected Not Detected LAB MICROBIOLOGY METHOD 01/26/2024 12:12 PM [facility] Influenza A PCR Not Detected Not Detected LAB MICROBIOLOGY METHOD 01/26/2024 12:12 PM [facility] Influenza B PCR Not Detected Not Detected LAB MICROBIOLOGY METHOD 01/26/2024 12:12 PM [facility] Coronavirus 229E Not Detected Not Detected LAB MICROBIOLOGY METHOD 01/26/2024 12:12 PM [facility] Coronavirus HKU1 Not Detected Not Detected LAB MICROBIOLOGY METHOD 01/26/2024 12:12 PM [facility] Coronavirus OC43 Not Detected Not Detected LAB MICROBIOLOGY METHOD 01/26/2024 12:12 PM [facility] Coronavirus NL63 Not Detected Not Detected LAB MICROBIOLOGY METHOD 01/26/2024 12:12 PM [facility] Parainfluenza Virus 1 Not Detected Not Detected LAB MICROBIOLOGY METHOD 01/26/2024 12:12 PM [facility] Parainfluenza Virus 2 Not Detected Not Detected LAB MICROBIOLOGY METHOD 01/26/2024 12:12 PM [facility] Parainfluenza Virus 3 Not Detected Not Detected LAB MICROBIOLOGY METHOD 01/26/2024 12:12 PM [facility] Parainfluenza Virus 4 Not Detected Not Detected LAB MICROBIOLOGY METHOD 01/26/2024 12:12 PM [facility] RSV PCR Not Detected Not Detected LAB MICROBIOLOGY METHOD 01/26/2024 12:12 PM [facility] Human Metapneumovirus A and B Not Detected Not Detected LAB MICROBIOLOGY METHOD 01/26/2024 12:12 PM [facility] Rhinovirus/Entero virus Detected(A ) Not Detected LAB MICROBIOLOGY METHOD 01/26/2024 12:12 PM [facility] Bordetella pertussis Not Detected Not Detected LAB MICROBIOLOGY METHOD 01/26/2024 12:12 PM [facility] Bordetella parapertussis Not Detected Not Detected LAB MICROBIOLOGY METHOD 01/26/2024 12:12 PM [facility] Mycoplasma pneumo by PCR Not Detected Not Detected LAB MICROBIOLOGY METHOD 01/26/2024 12:12 PM [facility] Chlamydia pneumoniae Not Detected Not Detected LAB MICROBIOLOGY METHOD 01/26/2024 12:12 PM [facility] SARS COV-2 Not Detected Not Detected LAB MICROBIOLOGY METHOD 01/26/2024 12:12 PM [facility] Swab Both anterior nares / Unknown Non-blood Collection / Unknown 01/26/2024 11:04 AM EST 01/26/2024 11:15 AM EST [facility] - 01/26/2024 12:12 PM EST Testing was performed using the [employer] Respiratory Pathogen PCR Assay. All results must be correlated with the clinical findings. Results should not be used as the sole basis for diagnosis. False Negative results may occur from the presence of sequence variants in the region targeted by the assay or the presence of inhibitors. Results may be affected by concurrent antiviral/antimicrobial therapy or levels of organisms that are below the limit of detection. Gerard Palumbo MD LAB MICROBIOLOGY - G ENERAL ORDERABLES [facility] [address] [place] [address], * CBC auto differential (01/26/2024 10:22 AM EST) WBC 7.9 4.8 - 10.8 K/mcL LAB HEMETOLOGY METHOD 01/26/2024 10:39 AM [facility] RBC 5.00 4.50 - 5.50 M/mcL LAB HEMETOLOGY METHOD 01/26/2024 10:39 AM [facility] Hemoglobin 14.4 13.5 - 17.5 g/dL LAB HEMETOLOGY METHOD 01/26/2024 10:39 AM [facility] Hematocrit 44.8 42.0 - 54.0 % LAB HEMETOLOGY METHOD 01/26/2024 10:39 AM [facility] MCV 89.2 79.0 - 98.0 FL LAB HEMETOLOGY METHOD 01/26/2024 10:39 AM [facility] MCH 28.7 27.0 - 32.0 pcg LAB HEMETOLOGY METHOD 01/26/2024 10:39 AM [facility] MCHC 32.1 32.0 - 37.0 g/dL LAB HEMETOLOGY METHOD 01/26/2024 10:39 AM [facility] RDW 13.7 11.0 - 15.0 % LAB HEMETOLOGY METHOD 01/26/2024 10:39 AM [facility] Platelets 355 130 - 400 K/mcL LAB HEMETOLOGY METHOD 01/26/2024 10:39 AM [facility] MPV 8.8 7.0 - 11.0 FL LAB HEMETOLOGY METHOD 01/26/2024 10:39 AM [facility] NRBC 0.0 <1.0 % LAB HEMETOLOGY METHOD 01/26/2024 10:39 AM [facility] NRBC Absolute 0.00 <0.10 K/mcL LAB HEMETOLOGY METHOD 01/26/2024 10:39 AM [facility] Neutrophils Relative 51.1 % LAB HEMETOLOGY METHOD 01/26/2024 10:39 AM [facility] Lymphocytes Relative 32.5 % LAB HEMETOLOGY METHOD 01/26/2024 10:39 AM [facility] Monocytes Relative 10.0 % LAB HEMETOLOGY METHOD 01/26/2024 10:39 AM [facility] Eosinophils Relative 5.5 % LAB HEMETOLOGY METHOD 01/26/2024 10:39 AM [facility] Basophils Relative 0.8 % LAB HEMETOLOGY METHOD 01/26/2024 10:39 AM [facility] Immature Granulocytes Relative 0.1 % LAB HEMETOLOGY METHOD 01/26/2024 10:39 AM [facility] Neutrophils Absolute 4.02 1.50 - 7.00 K/[facility] LAB HEMETOLOGY METHOD 01/26/2024 10:[address] [facility] Lymphocytes Absolute 2.56 1.00 - 5.00 K/[facility] LAB HEMETOLOGY METHOD 01/26/2024 10:[address] [facility] Monocytes Absolute 0.79 0.20 - 1.00 K/[facility] LAB HEMETOLOGY METHOD 01/26/2024 10:[address] [facility] Eosinophils Absolute 0.43 0.00 - 0.50 K/[facility] LAB HEMETOLOGY METHOD 01/26/2024 10:[address] [facility] Basophils Absolute 0.06 0.00 - 0.20 K/[facility] LAB HEMETOLOGY METHOD 01/26/2024 10:39 AM [facility] Immature Granulocytes Absolute 0.01 0.00 - 0.03 K/[facility] LAB HEMETOLOGY METHOD 01/26/2024 10:[address] [facility] Blood Venous blood specimen / Unknown Venipuncture / Unknown 01/26/2024 10:22 AM EST 01/26/2024 10:33 AM EST Gerard Palumbo MD LAB BLOOD ORDERABLES [facility] [address] [place] [address], * (ABNORMAL) Comprehensive metabolic panel (01/26/2024 10:22 AM EST) Sodium 139 133 - 145 mmol/L LAB CHEMISTRY METHOD 01/26/2024 11:[address] [facility] Potassium 4.1 3.5 - 5.5 mmol/L LAB CHEMISTRY METHOD 01/26/2024 11:00 AM [facility] Chloride 108 96 - 110 mmol/L LAB CHEMISTRY METHOD 01/26/2024 11:[address] [facility] CO2 25 21 - 32 mmol/L LAB CHEMISTRY METHOD 01/26/2024 11:00 AM [facility] Anion Gap 6 3 - 11 LAB CHEMISTRY METHOD 01/26/2024 11:00 AM [facility] Glucose 106(H) 70 - 100 mg/dL LAB CHEMISTRY METHOD 01/26/2024 11:00 AM [facility] BUN 23 5 - 25 mg/dL LAB CHEMISTRY METHOD 01/26/2024 11:00 AM [facility] Creatinine 1.41(H) 0.70 - 1.30 mg/dL LAB CHEMISTRY METHOD 01/26/2024 11:00 AM [facility] eGFR 57(L) >=60 mL/min/1. 73m2 LAB CHEMISTRY METHOD 01/26/2024 11:00 AM [facility] Comment:Calculation based on the??Chronic Kidney Disease Epidemiology Collaboration (CKD-EPI) equation refit??without adjustment for race. BUN/Creatinine Ratio 16.3 LAB CHEMISTRY METHOD 01/26/2024 11:00 AM [facility] Calcium 9.9 8.5 - 10.5 mg/dL LAB CHEMISTRY METHOD 01/26/2024 11:00 AM [facility] AST (SGOT) 21 10 - 42 unit/L LAB CHEMISTRY METHOD 01/26/2024 11:00 AM [facility] ALT (SGPT) 25 10 - 60 unit/L LAB CHEMISTRY METHOD 01/26/2024 11:00 AM [facility] Alkaline Phosphatase 118 42 - 121 unit/L LAB CHEMISTRY METHOD 01/26/2024 11:00 AM [facility] Total Protein 7.7 6.0 - 8.0 g/dL LAB CHEMISTRY METHOD 01/26/2024 11:00 AM [facility] Albumin 3.6 3.2 - 5.0 g/dL LAB CHEMISTRY METHOD 01/26/2024 11:00 AM [facility] Total Bilirubin 0.3 0.0 - 1.4 mg/dL LAB CHEMISTRY METHOD 01/26/2024 11:[address] [facility] Blood Venous blood specimen / Unknown Venipuncture / Unknown 01/26/2024 10:22 AM EST 01/26/2024 10:33 AM EST Gerard Palumbo MD LAB BLOOD ORDERABLES [facility] [address] [place] [address], from Last 3 Months Care Teams Tubular Riveter Relationship Specialty Start Date End Date Sepideh Galeas FNP [facility] [place] [id number] PCP - General Nurse Practitioner 01/26/24
== END 2024-04-11 06:31 | disposition home or self-care (01) ==
LOC: CF 06:30
PROVIDERS: Visit Provider Internal Medicine
DX: Z13.89 Encounter for screening for other disorder (principal)

== ENCOUNTER 2024-04-18 07:40 | Outpatient (REF) | payer MEDICAID, SELFPAY ==
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
--- OUTSIDE RECORDS SUMMARY | 2024-04-18 07:41 | XMS_ITS | Encounter Summary ---
Author Organization [facility] Address [address] [place] [address] Care Team Providers Care Rewriter Name Role Phone Janice Mccollum MD Primary Care Provider [phone] Reason for Visit * Reason Comments Pain Encounter Details Date Type Department Care Team (Late st Contact Info) Description 04/05/2024 9:00 AM EST Office Visit [facility] [address] [place] [address] Edward Palumbo MD [address] [place] [address]. [place] [address] Chronic bilateral low back pain with bilateral [...] a 58 year old male Pt of [facility] Lionel C/O feeling pain all over the body and blurred vision for a long time Pt on Duloxetine 30 mg and Gabapentin 300 mg po tid . Pt says he is not taking Gabapentin consistently Pt was referred earlier to see [employer] Pt was seen in ER 01/26/24 for Back pain and CT was normal. Pt also had MRI 05/26/23 of back which showed L2-L3 mild bilateral foraminal stenosis, L3-L4 mild right sided and moderate left sided Foraminal stenosis, L4-5- moderate bilateral stenosis, L5-S1 - moderate bilateral foraminal stenosis . Pt follows [facility] and Neurosurgeon Problem List: Patient [...] of major depressive disorder without prior episode ([facility]) Subarachnoid hemorrhage ([facility]) Primary hypertension Moderate mixed hyperlipidemia not requiring [...] every 6 (six) hours as needed for [id number] Tablet 2 SYMBICORT 160-4.5 mcg/actuation inhaler Inhale [...] bilateral sciatica (primary encounter diagnosis) Pt follows [facility] and Neurosurgeon Advice pt to [...] URIC ACID 6.2 4.0 - 8.0 mg/dL [facility] Comment: Therapeutic target for gout patients: <6.0 mg/dL ?? Blood Blood / Unknown 04/05/2024 9 :09 AM EST 04/05/2024 9:09 AM EST Narrative [facility] - 04/06/2024 4:57 AM EST FASTING:NO us Edward Palumbo MD LAB - BLOOD DRAW Final Result [facility] [address] [place] [id number], [facility] [address] [place] [phone] documented in this encounter Visit Diagnoses Diagnosis Chronic bilateral low back pain with bilateral sciatica- Primary Chronic gout of multiple sites, unspecified cause documented in this encounter Additional Health Concerns Assessment Noted Time PHQ-9 Depression Total Score: 7 04/05/19 25 8:57 AM PST documented as of this encounter Care Teams Rewriter Relationship Specialty Start Date End Date Janice Mccollum MD [facility] [place] [address] PCP - General Family Medicine, Physician 08/22/23 [facility]ly [facility] Saige Ledbetter-Certified Performance Technologist [phone] Community Health Worker 07/14/21 documented as of this encounter
--- OUTSIDE RECORDS SUMMARY | 2024-04-18 07:41 | XMS_ITS | Clinical Summary ---
Author Organization [facility] [employer] Address [address] [id number] Phone Care Team Providers Care Show Card Letterer Name Role Phone Sepideh aGleas [employer] TECHNICIAN Primary Care Provider [phone] Allergies No known active allergies Medications cyclobenzaprine (FLEXERIL) 10 mg tablet Take 1 tablet (10 mg total) by mouth 3 (three) times a day if needed for muscle spasms for up to 5 days. 15 each 01/26/2024 Active Active Problems No known active problems Encounters Date Type Department Care Team Description 01/26/2024 10:13 AM EST - 01/26/2024 1:37 PM [facility] Emergency [address] [place] [phone] Gerard Palumbo MD Acute left-sided thoracic back [...] Relation Name Comments Asthma Brother Diabetes Father OR/CABG, Gout Heart attack Father's side Uncle Breast [...] Assigned at Male 01/26/2024 10:46 AM EST Legal Sex Male 2:06 PM EST Gender Identity Male 01/26/2024 10:46 AM EST Sexual Orientation Straight 01/26/2024 10 :46 AM EST Obstetrics History Last Filed Vital Signs Vital [...] and culture (01/26/2024 12:39 PM EST) Specific [place] Urine 1.036(H) 1.003 - 1.030 LAB URINALYSIS - AUTOMATED METHOD 01/26/2024 12:48 PM [facility] pH, Urine 7.0 5.0 - 8.0 pH LAB URINALYSIS - AUTOMATED METHOD 01/26/2024 12:48 PM [facility] Leukocytes, Urine Negative Negative LAB URINALYSIS - AUTOMATED METHOD 01/26/2024 12:48 PM [facility] Nitrite, Urine Negative Negative LAB URINALYSIS - AUTOMATED METHOD 01/26/2024 12:48 PM [facility] Protein, Urine Negative <=Trace mg/dL LAB URINALYSIS - AUTOMATED METHOD 01/26/2024 12:48 PM [facility] Glucose, Urine Negative Negative mg/dL LAB URINALYSIS - AUTOMATED METHOD 01/26/2024 12:48 PM [facility] Ketones, Urine Negative Negative mg/dL LAB URINALYSIS - AUTOMATED METHOD 01/26/2024 12:48 PM [facility] Urobilinogen, Urine 0.2 0.2 - 1.0 mg/dL LAB URINALYSIS - AUTOMATED METHOD 01/26/2024 12:48 PM [facility] Bilirubin, Urine Negative Negative LAB URINALYSIS - AUTOMATED METHOD 01/26/2024 12:48 PM EST [facility] Blood, Urine Negative Negative LAB URINALYSIS - AUTOMATED METHOD 01/26/2024 12:48 PM EST [facility] Urine Urine specimen obtained by clean catch procedure / Unknown Non-blood Collection / Unknown 01/26/2024 12:39 PM EST 01/26/2024 12:41 PM EST Gerard Palumbo MD LAB URINE ORDERABLES Final Resu lt [facility] [address] [place] [address], [place] [phone] * Biggs urine culture tube (01/26/2024 12:39 PM EST) Extra Tube Hold for add-ons. 01/26/2024 2:02 PM EST [facility] Comment:Auto resulted. Urine Urine specimen obtained by clean catch procedure / Unknown Non-blood Collection / Unknown 01/26/2024 12:39 PM EST 01/26/2024 12:41 PM EST Gerard Palumbo MD LAB URINE ORDERABLES Final Resu lt [facility] [address] [place] [address], [place] [phone] * CT Chest/Abdomen/Pelvis w Contrast (01/26/2024 11:28 [...] Signed Date: 01/26/2024 12:14 ET Workstation ID: [id number] Transcribed By: Self Edit Transcribed Date: 01/26/2024 [...] Signed Date: 01/26/2024 12:14 ET Workstation ID: [id number] Transcribed By: Self Edit Transcribed Date: 01/26/2024 12:04 ET Gerard B Linwood [facility] CT PROCEDURES Final Result * (ABNORMAL) Respiratory virus panel molecular study (01/26/2024 11:04 AM EST) Adenovirus Detection by PCR Not Detected Not Detected LAB MICROBIOLOGY METHOD 01/26/2024 12:12 PM EST [facility] Influenza A PCR Not Detected Not Detected LAB MICROBIOLOGY METHOD 01/26/2024 12:12 PM EST [facility] Influenza B PCR Not Detected Not Detected LAB MICROBIOLOGY METHOD 01/26/2024 12:12 PM [facility] Coronavirus 229E Not Detected Not Detected LAB MICROBIOLOGY METHOD 01/26/2024 12:12 PM [facility] Coronavirus HKU1 Not Detected Not Detected LAB MICROBIOLOGY METHOD 01/26/2024 12:12 PM [facility] Coronavirus OC43 Not Detected Not Detected LAB MICROBIOLOGY METHOD 01/26/2024 12:12 PM [facility] Coronavirus NL63 Not Detected Not Detected LAB MICROBIOLOGY METHOD 01/26/2024 12:12 PM [facility] Parainfluenza Virus 1 Not Detected Not Detected LAB MICROBIOLOGY METHOD 01/26/2024 12:12 PM [facility] Parainfluenza Virus 2 Not Detected Not Detected LAB MICROBIOLOGY METHOD 01/26/2024 12:12 PM [facility] Parainfluenza Virus 3 Not Detected Not Detected LAB MICROBIOLOGY METHOD 01/26/2024 12:12 PM [facility] Parainfluenza Virus 4 Not Detected Not Detected LAB MICROBIOLOGY METHOD 01/26/2024 12:12 PM [facility] RSV PCR Not Detected Not Detected LAB MICROBIOLOGY METHOD 01/26/2024 12:12 PM [facility] Human Metapneumovirus A and B Not Detected Not Detected LAB MICROBIOLOGY METHOD 01/26/2024 12:12 PM [facility] Rhinovirus/Entero virus Detected(A ) Not Detected LAB MICROBIOLOGY METHOD 01/26/2024 12:12 PM [facility] Bordetella pertussis Not Detected Not Detected LAB MICROBIOLOGY METHOD 01/26/2024 12:12 PM [facility] Bordetella parapertussis Not Detected Not Detected LAB MICROBIOLOGY METHOD 01/26/2024 12:12 PM [facility] Mycoplasma pneumo by PCR Not Detected Not Detected LAB MICROBIOLOGY METHOD 01/26/2024 12:12 PM [facility] Chlamydia pneumoniae Not Detected Not Detected LAB MICROBIOLOGY METHOD 01/26/2024 12:12 PM [facility] SARS COV-2 Not Detected Not Detected LAB MICROBIOLOGY METHOD 01/26/2024 12:12 PM [facility] Swab Both anterior nares / Unknown Non-blood Collection / Unknown 01/26/2024 11:04 AM EST 01/26/2024 11:15 AM EST [facility] - 01/26/2024 12:12 PM EST Testing was performed using the [employer] Respiratory Pathogen PCR Assay. All results must [...] detection. Gerard Palumbo MD LAB MICROBIOLOGY - [facility] Final Result [facility] [address] [place] [address], * CBC auto differential (01/26/2024 10:22 AM EST) WBC 7.9 4.8 - 10.8 K/mcL LAB HEMETOLOGY METHOD 01/26/2024 10:39 AM [facility] RBC 5.00 4.50 - 5.50 M/mcL LAB HEMETOLOGY METHOD 01/26/2024 10:39 AM [facility] Hemoglobin 14.4 13.5 - 17.5 g/dL LAB HEMETOLOGY METHOD 01/26/2024 10:39 AM [facility] Hematocrit 44.8 42.0 - 54.0 % LAB HEMETOLOGY METHOD 01/26/2024 10:39 AM [facility] MCV 89.2 79.0 - 98.0 FL LAB HEMETOLOGY METHOD 01/26/2024 10:39 AM [facility] MCH 28.7 27.0 - 32.0 pcg LAB HEMETOLOGY METHOD 01/26/2024 10:39 AM [facility] MCHC 32.1 32.0 - 37.0 g/dL LAB HEMETOLOGY METHOD 01/26/2024 10:39 AM [facility] RDW 13.7 11.0 - 15.0 % LAB HEMETOLOGY METHOD 01/26/2024 10:39 AM [facility] Platelets 355 130 - 400 K/mcL LAB HEMETOLOGY METHOD 01/26/2024 10:39 AM [facility] MPV 8.8 7.0 - 11.0 FL LAB HEMETOLOGY METHOD 01/26/2024 10:39 AM [facility] NRBC 0.0 <1.0 % LAB HEMETOLOGY METHOD 01/26/2024 10:39 AM [facility] NRBC Absolute 0.00 <0.10 K/mcL LAB HEMETOLOGY METHOD 01/26/2024 10:39 AM [facility] Neutrophils Relative 51.1 % LAB HEMETOLOGY METHOD 01/26/2024 10:39 AM [facility] Lymphocytes Relative 32.5 % LAB HEMETOLOGY METHOD 01/26/2024 10:39 AM [facility] Monocytes Relative 10.0 % LAB HEMETOLOGY METHOD 01/26/2024 10:39 AM [facility] Eosinophils Relative 5.5 % LAB HEMETOLOGY METHOD 01/26/2024 10:39 AM [facility] Basophils Relative 0.8 % LAB HEMETOLOGY METHOD 01/26/2024 10:39 AM [facility] Immature Granulocytes Relative 0.1 % LAB HEMETOLOGY METHOD 01/26/2024 10:39 AM EST [facility] Neutrophils Absolute 4.02 1.50 - 7.00 K/mcL LAB HEMETOLOGY METHOD 01/26/2024 10:39 AM [facility] Lymphocytes Absolute 2.56 1.00 - 5.00 K/mcL LAB HEMETOLOGY METHOD 01/26/2024 10:39 AM EST [facility] Monocytes Absolute 0.79 0.20 - 1.00 K/mcL LAB HEMETOLOGY METHOD 01/26/2024 10:39 AM [facility] Eosinophils Absolute 0.43 0.00 - 0.50 K/mcL LAB HEMETOLOGY METHOD 01/26/2024 10:39 AM [facility] Basophils Absolute 0.06 0.00 - 0.20 K/mcL LAB HEMETOLOGY METHOD 01/26/2024 10:39 AM [facility] Immature Granulocytes Absolute 0.01 0.00 - 0.03 K/[facility] LAB HEMETOLOGY METHOD 01/26/2024 10:39 AM [facility] Blood Venous blood specimen / Unknown Venipuncture / Unknown 01/26/2024 10:22 AM EST 01/26/2024 10:33 AM EST us Gerard Palumbo MD LAB BLOOD ORDERABLES Final Resu lt [facility] [address] [place] [address], * (ABNORMAL) Comprehensive metabolic panel (01/26/2024 10:22 AM EST) Sodium 139 133 - 145 mmol/L LAB CHEMISTRY METHOD 01/26/2024 11:00 AM [facility] Potassium 4.1 3.5 - 5.5 mmol/L LAB CHEMISTRY METHOD 01/26/2024 11:00 AM EST [facility] Chloride 108 96 - 110 mmol/L LAB CHEMISTRY METHOD 01/26/2024 11:00 AM [facility] CO2 25 21 - 32 mmol/L LAB CHEMISTRY METHOD 01/26/2024 11:00 AM [facility] Anion Gap 6 3 - 11 LAB CHEMISTRY METHOD 01/26/2024 11:00 AM [facility] Glucose 106(H) 70 - 100 mg/dL LAB CHEMISTRY METHOD 01/26/2024 11:00 AM [facility] BUN 23 5 - 25 mg/dL LAB CHEMISTRY METHOD 01/26/2024 11:00 AM [facility] Creatinine 1.41(H) 0.70 - 1.30 mg/dL LAB CHEMISTRY METHOD 01/26/2024 11:00 AM [facility] eGFR 57(L) >=60 mL/min/1. 73m2 LAB CHEMISTRY METHOD 01/26/2024 11:00 AM [facility] Comment:Calculation based on the??Chronic Kidney Disease Epidemiology Collaboration (CKD-EPI) equation refit??without adjustment for race. BUN/Creatinine Ratio 16.3 LAB CHEMISTRY METHOD 01/26/2024 11:00 AM [facility] Calcium 9.9 8.5 - 10.5 mg/dL LAB CHEMISTRY METHOD 01/26/2024 11:00 AM [facility] AST (SGOT) 21 10 - 42 unit/L LAB CHEMISTRY METHOD 01/26/2024 11:00 AM [facility] ALT (SGPT) 25 10 - 60 unit/L LAB CHEMISTRY METHOD 01/26/2024 11:00 AM [facility] Alkaline Phosphatase 118 42 - 121 unit/L LAB CHEMISTRY METHOD 01/26/2024 11:00 AM [facility] Total Protein 7.7 6.0 - 8.0 g/dL LAB CHEMISTRY METHOD 01/26/2024 11:00 AM [facility] Albumin 3.6 3.2 - 5.0 g/dL LAB CHEMISTRY METHOD 01/26/2024 11:00 AM EST [facility] Total Bilirubin 0.3 0.0 - 1.4 mg/dL LAB CHEMISTRY METHOD 01/26/2024 11:00 AM EST [facility] Blood Venous blood specimen / Unknown Venipuncture / Unknown 01/26/2024 10:22 AM EST 01/26/2024 10:33 AM EST us Gerard Brandyn Palumbo MD LAB BLOOD ORDERABLES Final Resu lt [facility] [address] [place] [address], from Last 3 Months Insurance MEDICAID - [place] Care Teams Show Card Letterer Relationship Specialty Start Date End Date Sepideh Galeas FNP [address] [place] [phone] PCP - General Nurse Practitioner 01/26/24
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
== END 2024-04-18 07:41 | disposition home or self-care (01) ==
LOC: CF 07:40
PROVIDERS: Visit Provider Internal Medicine
DX: Z13.89 Encounter for screening for other disorder (principal)

== ENCOUNTER 2024-05-09 06:22 | Outpatient (REF) | payer MEDICAID, SELFPAY ==
--- NOTE | ~2024-05-09 | FL_ITS ---
EXAMINATION: FL GUIDANCE ONLY HISTORY: M54.42 - Lumbago with sciatica, left side COMPARISON: None available. TECHNIQUE: Fluoroscopy time: 0.1 minutes. Cumulative Dose: 5.30 mGy. DAP: 0.0477 mGym2 Images: 2. FINDINGS: Images demonstrate a needle overlying the sacrum. FL/FL guidance in treatment room IMPRESSION: Fluoroscopy during procedure. Please see procedure report for additional information. Electronically signed by: Luís Capellan MD 05/13/2024 10:59 AM EDT
--- OUTSIDE RECORDS SUMMARY | 2024-05-09 06:24 | XMS_ITS | Clinical Summary ---
Author Organization [facility] Address [address] [place] [address] Phone Care Team Providers Care Rehab Director Name Role Phone GudeliaSepideh ACCURACY EXPERT Primary Care Provider [phone] Allergies No known active allergies Medications cyclobenzaprine (FLEXERIL) 10 mg tablet Take 1 tablet (10 mg total) by mouth 3 (three) times a day if needed for muscle spasms for up to 5 days. 15 each 01/26/2024 Active Active Problems No known active problems Medical History Medical History Date Comments BPH [...] Relation Name Comments Asthma Brother Diabetes Father ID/CABG, Gout Heart attack Father's side Uncle Breast [...] Due Date Last Done Comments Pneumococcal Vaccine: 50+ Years (1 of 1 - PCV) 2014 Colorectal Cancer Screening: Colonoscopy 02/02/2022 Social Influencers [...] 10/15/2019 Hepatitis B Vaccines Completed 11/03/2022, 06/07/19 23 COVID-19 Vaccine Completed 11/27/2023, 05/2022, 12/16/2020, Additional [...] patient's age to complete this topic Meningococcal B Vacine Aged Out No lo nger eligible based on patient's age to complete this topic Pneumococcal Vaccine: Pediatrics (0 to 5 Years) and At-Risk Patients (6 to 64 Years) Aged Out No longer eligible based on patient's age to complete this topic RSV Immunization Patients Under 20 months Aged Out No longer eligible based on patient's age to complete this topic Varicella Vaccines Aged Out No longer eligible based on patient's age to complete this topic Procedures Procedure Name Priority Date/Time Associated Diagnosis Comments COMPREHENSIVE METABOLIC PANEL STAT 01/26/2024 10:22 AM EST from Last 3 Months or Most Recently Relevant to Health Maintenance Results * (ABNORMAL) Comprehensive metabolic panel (01/26/2024 10:22 AM EST) [facility] Signature Sodium 139 133 - 145 mmol/L LAB CHEMISTRY METHOD 01/26/2024 11:00 AM EST [facility] Potassium 4.1 3.5 - 5.5 mmol/L LAB CHEMISTRY METHOD 01/26/2024 11:00 AM [facility] Chloride 108 96 - 110 mmol/L LAB CHEMISTRY METHOD 01/26/2024 11:00 AM [facility] CO2 25 21 - 32 mmol/L LAB CHEMISTRY METHOD 01/26/2024 11:00 AM [facility] Anion Gap 6 3 - 11 LAB CHEMISTRY METHOD 01/26/2024 11:00 AM [facility] Glucose 106(H) 70 - 100 mg/dL LAB CHEMISTRY METHOD 01/26/2024 11:00 AM [facility] BUN 23 5 - 25 mg/dL LAB CHEMISTRY METHOD 01/26/2024 11:00 AM [facility] Creatinine 1.41(H) 0.70 - 1.30 mg/dL LAB CHEMISTRY METHOD 01/26/2024 11:00 AM [facility] eGFR 57(L) >=60 mL/min/1. 73m2 LAB CHEMISTRY METHOD 01/26/2024 11:00 AM [facility] Comment:Calculation based on the??Chronic Kidney Disease Epidemiology Collaboration (CKD-EPI) equation refit??without adjustment for race. BUN/Creatinine Ratio 16.3 LAB CHEMISTRY METHOD 01/26/2024 11:00 AM [facility] Calcium 9.9 8.5 - 10.5 mg/dL LAB CHEMISTRY METHOD 01/26/2024 11:00 AM [facility] AST (SGOT) 21 10 - 42 unit/L LAB CHEMISTRY METHOD 01/26/2024 11:00 AM [facility] ALT (SGPT) 25 10 - 60 unit/L LAB CHEMISTRY METHOD 01/26/2024 11:00 AM [facility] Alkaline Phosphatase 118 42 - 121 unit/L LAB CHEMISTRY METHOD 01/26/2024 11:00 AM [facility] Total Protein 7.7 6.0 - 8.0 g/dL LAB CHEMISTRY METHOD 01/26/2024 11:00 AM [facility] Albumin 3.6 3.2 - 5.0 g/dL LAB CHEMISTRY METHOD 01/26/2024 11:[address] [facility] Total Bilirubin 0.3 0.0 - 1.4 mg/dL LAB CHEMISTRY METHOD 01/26/2024 11:[address] [facility] Blood Venous blood specimen / Unknown Venipuncture / Unknown 01/26/2024 10:22 AM EST 01/26/2024 10:33 AM EST us Gerard B Linwood [facility] LAB BLOOD ORDERABLES Final Resu lt [facility]) [facility] [address] [place] [address], from Last 3 Months or Most Recently Relevant to Health Maintenance Insurance MEDICAID - [place] Care Teams Rehab Director Relationship Specialty Start Date End Date Sepideh Galeas FNP [address] [place] [address] PCP - General Nurse Practitioner 01/26/24
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
== END 2024-05-09 06:23 | disposition home or self-care (01) ==
LOC: CF 06:22
PROVIDERS: Visit Provider Internal Medicine
DX: M54.42 Lumbago with sciatica, left side (principal); M54.41 Lumbago with sciatica, right side; G89.29 Other chronic pain; M48.061 Spinal stenosis, lumbar region without neurogenic claudication
CPT/HCPCS: 62323; J2003; J3301; Q9967

== ENCOUNTER 2024-05-09 11:16 | Outpatient (AMB) | payer MEDICAID, SELFPAY ==
[2024-05-09 11:44] VITALS: BP 133/82; PULSE 74; O2SAT 99
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
[2024-05-09 12:49] VITALS: BP 167/96; PULSE 71; O2SAT 99
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
--- OUTSIDE RECORDS SUMMARY | 2024-05-09 13:51 | XMS_ITS | Clinical Summary ---
Author Organization [facility] [employer] Address [address] [place] [address] Phone Care Team Providers Care Instructional Resource Teacher Name Role Phone GudeliaSepideh PRESSING MACHINE TENDER Primary Care Provider [phone] Allergies No known active allergies Medications cyclobenzaprine [...] Relation Name Comments Asthma Brother Diabetes Father [place]/CABG, Gout Heart attack Father's side Uncle Breast [...] Comprehensive metabolic panel (01/26/2024 10:22 AM EST) [facility] Signature Sodium 139 133 - 145 mmol/L LAB CHEMISTRY METHOD 01/26/2024 11:00 AM EST [facility] Potassium 4.1 3.5 - 5.5 mmol/L LAB CHEMISTRY METHOD 01/26/2024 11:00 AM [facility] Chloride 108 96 - 110 mmol/L LAB CHEMISTRY METHOD 01/26/2024 11:00 AM [facility] CO2 25 21 - 32 mmol/L LAB CHEMISTRY METHOD 01/26/2024 11:00 AM [facility] Anion Gap 6 3 - 11 LAB CHEMISTRY METHOD 01/26/2024 11:00 AM [facility] Glucose 106(H) 70 - 100 mg/dL LAB CHEMISTRY METHOD 01/26/2024 11:00 AM [facility] BUN 23 5 - 25 mg/dL LAB CHEMISTRY METHOD 01/26/2024 11:00 AM [facility] Creatinine 1.41(H) 0.70 - 1.30 mg/dL LAB CHEMISTRY METHOD 01/26/2024 11:00 AM [facility] eGFR 57(L) >=60 mL/min/1. 73m2 LAB CHEMISTRY METHOD 01/26/2024 11:00 AM [facility] Comment:Calculation based on the??Chronic Kidney Disease Epidemiology Collaboration (CKD-EPI) equation refit??without adjustment for race. BUN/Creatinine Ratio 16.3 LAB CHEMISTRY METHOD 01/26/2024 11:00 AM [facility] Calcium 9.9 8.5 - 10.5 mg/dL LAB CHEMISTRY METHOD 01/26/2024 11:00 AM [facility] AST (SGOT) 21 10 - 42 unit/L LAB CHEMISTRY METHOD 01/26/2024 11:00 AM [facility] ALT (SGPT) 25 10 - 60 unit/L LAB CHEMISTRY METHOD 01/26/2024 11:00 AM [facility] Alkaline Phosphatase 118 42 - 121 unit/L LAB CHEMISTRY METHOD 01/26/2024 11:00 AM [facility] Total Protein 7.7 6.0 - 8.0 g/dL LAB CHEMISTRY METHOD 01/26/2024 11:00 AM [facility] Albumin 3.6 3.2 - 5.0 g/dL LAB CHEMISTRY METHOD 01/26/2024 11:00 AM EST [facility] Total Bilirubin 0.3 0.0 - 1.4 mg/dL LAB CHEMISTRY METHOD 01/26/2024 11:00 AM EST [facility] Blood Venous blood specimen / Unknown Venipuncture / Unknown 01/26/2024 10:22 AM EST 01/26/2024 10:33 AM EST us [facility] BLOOD ORDERABLES Final Resu lt [facility]) [facility] [address] [place] [address], from Last 3 Months or Most Recently Relevant to Health Maintenance Insurance MEDICAID - [place] Care Teams Instructional Resource Teacher Relationship Specialty Start Date End Date Sepideh Galeas FNP [address] [place] [address] PCP - General Nurse Practitioner 01/26/24
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
== END 2024-05-09 12:49 | disposition home or self-care (01) ==
LOC: HO.PMCPRC 11:16
PROVIDERS: PCP Nurse Practitioner; Visit Provider Internal Medicine
DX: M54.16 Radiculopathy, lumbar region (principal)
CPT/HCPCS: 62323

== ENCOUNTER 2024-07-26 11:04 | Outpatient (AMB) | payer MEDICAID, SELFPAY ==
--- OUTSIDE RECORDS SUMMARY | 2024-07-26 11:11 | XMS_ITS | Clinical Summary ---
Author Organization [facility] Address [address] [place] [address] Phone Care Team Providers Care Choir Director Name Role Phone GudeliaSepideh BLUEPRINT CUTTER Primary Care Provider [phone] Allergies No known active allergies Medications cyclobenzaprine [...] Relation Name Comments Asthma Brother Diabetes Father [place]/CABG, Gout Heart attack Father's side Uncle Breast [...] 01/26/2024 10:05 AM EST Plan of Treatment Upcoming Encounters Date Type Department Care Team (Late st Contact Info) Description 08/01/2024 1:30 PM EDT Appointment [facility] Pulmonary [address] [place] [address] Health Maintenance Due Date Last Done Comments Pneumococcal Vaccine: 50+ Years (1 of 1 - PCV) 2014 Colorectal Cancer Screening: Colonoscopy 02/02/2022 Social Influencers of Health Screening 02/02/2022 Influenza Vaccine (Season Ended) 2024 Hypertension/CHF/CAD Annual BMP Blood Test 01/25/2025 01/26/2024, 09/25/2023 Depression Screening 06/21/2025 06/21/2024 Cholesterol Screening (Lipid Panel) 06/07/2027 06/06/2022, 06/06/2022, 09/10/2021 DTaP,Tdap,and Td Vaccines (5 - Td or Tdap) 10/14/2029 10/15/2019, 06/06/2016, 07/16/2013, Additional history exists RSV Immunization Adult Patients (1 - 1-dose 75+ series) 08/22/2039 HIV [...] age to complete this topic Meningococcal B Vaccine Aged Out No l onger eligible based on patient's age to complete [...] mmol/L LAB CHEMISTRY METHOD 01/26/2024 11:00 AM [facility] Potassium 4.1 3.5 - 5.5 mmol/L LAB CHEMISTRY METHOD 01/26/2024 11:00 AM [facility] Chloride 108 96 - 110 mmol/L LAB CHEMISTRY METHOD 01/26/2024 11:00 AM [facility] CO2 25 21 - 32 mmol/L LAB CHEMISTRY METHOD 01/26/2024 11:00 AM [facility] Anion Gap 6 3 - 11 LAB CHEMISTRY METHOD 01/26/2024 11:00 AM [facility] Glucose 106(H) 70 - 100 mg/dL LAB CHEMISTRY METHOD 01/26/2024 11:00 AM [facility] BUN 23 5 - 25 mg/dL LAB CHEMISTRY METHOD 01/26/2024 11:00 AM [facility] Creatinine 1.41(H) 0.70 - 1.30 mg/dL LAB CHEMISTRY METHOD 01/26/2024 11:00 AM [facility] eGFR 57(L) >=60 mL/min/1. 73m2 LAB CHEMISTRY METHOD 01/26/2024 11:00 AM [facility] Comment:Calculation based on the??Chronic Kidney Disease Epidemiology Collaboration (CKD-EPI) equation refit??without adjustment for race. BUN/Creatinine Ratio 16.3 LAB CHEMISTRY METHOD 01/26/2024 11:00 AM [facility] Calcium 9.9 8.5 - 10.5 mg/dL LAB CHEMISTRY METHOD 01/26/2024 11:00 AM [facility] AST (SGOT) 21 10 - 42 unit/L LAB CHEMISTRY METHOD 01/26/2024 11:00 AM [facility] ALT (SGPT) 25 10 - 60 unit/L LAB CHEMISTRY METHOD 01/26/2024 11:00 AM [facility] Alkaline Phosphatase 118 42 - 121 unit/L LAB CHEMISTRY METHOD 01/26/2024 11:00 AM EST [facility] Total Protein 7.7 6.0 - 8.0 g/dL LAB CHEMISTRY METHOD 01/26/2024 11:00 AM EST [facility] Albumin 3.6 3.2 - 5.0 g/dL LAB CHEMISTRY METHOD 01/26/2024 11:00 AM [facility] Total Bilirubin 0.3 0.0 - 1.4 mg/dL LAB CHEMISTRY METHOD 01/26/2024 11:00 AM EST [facility] Blood Venous blood specimen / Unknown Venipuncture / Unknown 01/26/2024 10:22 AM EST 01/26/2024 10:33 AM EST [facility] BLOOD ORDERABLES Final Resu lt [facility] [address] [place] [address], from Last 3 Months or Most Recently Relevant to Health Maintenance Insurance MEDICAID - [place] Care Teams Choir Director Relationship Specialty Start Date End Date Sepideh Galeas FNP [address] [place] [address] PCP - General Nurse Practitioner 01/26/24
[2024-07-26 11:12] VITALS: BP 136/98; PULSE 95; O2SAT 98
--- NOTE | 2024-07-26 11:12 | MHC.OFFVIS ---
Vital Signs 07/26/24 11:12 Height 58 ft Weight 160 lb BMI 0.2 BP 136/98 H Blood Pressure Location Rt brachial Position Sitting Pulse 95 Pulse Source Pulse Oximeter Pulse Oximetry (%) 98 Oxygen Delivery Method Room Air Intake Visit Reasons: FU low back pain/anna from 07/12 Blender Required: No Allergies No Known Allergies Allergy (Verified 07/26/24 11:13) Medication List - Last Reconciled 07/26/24 by Rosana Carcamo, OSTEOPATHIC RESIDENT acetaminophen 500 mg PO Q6H PRN allopurinol 200 mg PO DAILY budesonide-formoterol 160-4.5 mcg/actuation (Symbicort) 2 puffs inhalation Q12H duloxetine 30 mg PO BEDTIME lidocaine 5% 1 patch topical DAILY naloxone 4 mg/actuation (Narcan) 4 mg intranasal Q2M PRN oxycodone 5 mg PO BID PRN 10 days HPI Comments Details: The patient is a 58-year-old male presenting with chronic low back pain management. He has a long-standing history of lumbar spine issues, including lumbar spondylosis, degenerative disc disease, spinal stenosis, and discogenic back pain. The patient was last given an Caudal ROMARIO with catheter on 05/09/24, which provided significant relief for 10 days before symptoms intensified once more. The back pain is severe, with a reported intensity of 25 out of 10 at its worst, occasionally accompanied by tingling in the left thigh. Pain is worsened by bending and prolonged sitting or standing. Walking provides some relief to the patient. Efforts to manage the pain with medications such as Tylenol, lidocaine patches and gabapentin have proven largely ineffective. Prior intake of oxycodone provided moderate relief without side effects. The referral to a Spine surgeon was discussed for potential surgical evaluation. Past Procedures: 05/09/24: Caudal ROAMRIO with catheter-100% pain relief for 10 days PRIOR: Patient presents today to discuss recent thoracic and lumbar spine imaging results. He continues to endorse low back pain with radiation into his lower extremities, left leg worse than the right with associated numbness and tingling sensations. He reports recently going to [facility] due to left-sided flank pain and muscle strain in the setting of excessive coughing and cold symptoms. Patient reports left flank pain has been resolving. However, he is experiencing significant lumbar spinal stenosis related pain which limits his walking capacity, ADLs, sleep and functioning. MRI and x-ray reports were discussed with patient today. Patient is interested to undergo caudal ROMARIO with fluoroscopy guidance prior considering neurosurgical evaluation. Denies any recent cough, cold, infection, fever, bladder or bowel dysfunction or any other significant changes in medical history since last office visit. PRIOR: Patient is a pleasant 58-year-old male with complex medical history including chronic gout of multiple sites, chronic bilateral low back pain is bilateral sciatic, history of head injury, carpal tunnel syndrome bilateral, memory loss, CKD, depression, presents today for initial evaluation for worsening chronic low back pain without radicular symptoms. Denies any recent trauma, injury or falls. Patient reports history of back injections with good relief but can not recall if this was done at [facility] or [facility] Pain management. He completed spine imaging at , this results are not available today. Patient was referred for lumbar spine MRI by his PCP but did not completed. Reports he completed physical therapy 3 years ago with minimal pain relief. Currently he is unable to pursue PT due to significant low back pain. Back pain is localized to lower back, worse on the right side and increases with bending, forward flexion, ROM, walking, and prolonged standing or sitting. Pain affects his daily functioning and mobility, mood, sleep, social interactions and quality of life. Denies previous spine surgery. He is awaiting hernia repair surgery. Patient also had recent gout exacerbation and uses indomethacin prn. Denies any fever or chills, weight loss, abdominal or groin pain, foot drop, bladder or bowel dysfunction or saddle anesthesia. Patient lives at home with his 2 adult sons who smoke and was recently diagnosed with asthma. Patient reports his temporary resides with his sister she undergoing treatments and upcoming bilateral lung transplant in [place] and requires smoke-free environment. Patient receives [facility] and takes public transportation. Location: Lower back, +gout pain (feet, thumb, elbow) Duration: Chronic pain for >15 years Characteristics of symptom or complaint: Shooting, throbbing, burning, stabbing, aching, radiating, spasming Aggravating or associated factors: Movements, bending, sitting, standing, movements, walking Relieving factors: Tried gabapentin, Tylenol, lidocaine patch, duloxetine, heat therapy Treatment: PT, back injections at [facility] or [facility] Medical History Discogenic low back pain Thoracic and lumbosacral neuritis Cervical spondylosis Subarachnoid hemorrhage Food insecurity Major depressive disorder Apneic episode Reactive airway disease without complication Constipation Hearing difficulty of both ears BPH (benign prostatic hyperplasia) Stage 3 chronic kidney disease Excessive anger Memory loss Swelling of left knee joint Vitamin D deficiency Carpal tunnel syndrome on both sides H/O head injury Chronic bilateral low back pain with bilateral sciatica Chronic gout of multiple sites Fracture, mandible Surgical History History of arthroplasty of knee Family History Mother Liver cancer Maternal Grandmother Breast cancer Father Diabetes Hypertension Heart disease Social History Household Members: Children Housing: House Alcohol intake: current Alcohol intake frequency: a few times a week Alcohol type: beer, wine and hard liquor Patient Tobacco Use Status: Never used Tobacco e-Cigarette/Vaping Use: Never Used Second Hand Smoke Exposure: Yes Review of Systems Const All systems reviewed & are unremarkable except as noted in HPI and below Physical Exam Vital Signs: Last Vital Signs Pulse 95 07/26/24 11:12 BP 136/98 H 07/26/24 11:12 Pulse Ox 98 07/26/24 11:12 Oxygen Delivery Method Room Air 07/26/24 11:12 BMI result Body Mass Index 0.2 General: Appears afebrile. Moderate-severe distress due to back pain. Alert and oriented. Mood and affect appropriate. Follows and participates in conversation appropriately. Respiratory effort is unlabored. No cough. Able to transition from sit to stand unassisted. Antalgic gait. Ambulates with bilaterally normal heel strike and toe off, reports pain with heel standing.. General: Yes no CVA tenderness Back/Spine/Pelvis Other: Limited lumbar ROM due to pain. Antalgic gait, mild limping. Lumbar flexion, axial rotations, and bending forward reproduces moderate pain. Demonstrates 5/5 right and 4/5 left strength of quadriceps bilaterally as well as flexion/dorsiflexion of bilateral feet against resistance. 2+ pedal pulses bilaterally. Seated straight leg rise with dorsiflexion positive bilaterally, left>right. +1 patellar and diminished achilles reflexes bilaterally. Facet loading test positive bilaterally. Benjamín sign positive on the right, Kamaljit?s reproduces lateral hip pain, not back pain. No groin pain with I/E hip rotations. Valsalva maneuver negative. Back: no CVA tenderness Cervical Spine: loss of normal cervical lordosis, cervical muscular tenderness, pain with cervical ROM and No Cervical spine tenderness Thoracic/Lumbar Spine: thoracic and lumbar spine normal to inspection, No Thoracic/lumbar spine scar(s), Lasegue's sign positive (left>right) bilateral and localized, pain with thoraco-lumbar ROM, paraspinal muscle tenderness, thoraco-lumbar ROM limited, No thoracic spinal tenderness and lumbar spinal tenderness Pelvis: no buttock tenderness Sacroiliac joints: on the right tender to palpation and on the left nontender Extrem General: Yes capillary refill normal, Yes no clubbing, cyanosis or edema and Yes no calf tenderness Results Reviewed Results Reviewed: MR SPINE LUMBAR without CONTRAST 11/27/23 at [facility] INDICATION: Lower back pain. TECHNIQUE: Unenhanced multiplanar, multisequence MR imaging of the lumbar spine. COMPARISON: MR L-Spine 05/26/2023. FINDINGS: There is mild dextroscoliosis of the lumbar spine. There is 3 mm anterolisthesis of L5 with respect to S1. Intervertebral disc space narrowing is seen from L1 through L5. Degenerative endplate changes are seen at L4-5 and L5-S1. The conus terminates at T12-L1. Vertebral heights are well maintained. Bone marrow signal is within normal limits, and no suspicious osseous lesion is identified. Conus medullaris is unremarkable. Paraspinal soft tissues and visualized portions of the abdomen and pelvis are unremarkable. At L1-2 there is broad-based central disc herniation with bilateral facet and ligamentum flavum hypertrophy. There is mild right and moderate left neural foraminal narrowing. No central canal stenosis is seen. At L2-3 there is broad-based central disc herniation with bilateral facet and ligamentum flavum hypertrophy. There is mild left and moderate to severe right neural foraminal narrowing. No central canal stenosis is seen. At L3-4 there is broad-based central disc herniation with mild canal stenosis. There is facet and ligamentum flavum hypertrophy. There is mild to moderate right and mild left neural foraminal narrowing. There is effacement of the ventral thecal sac. At L4-5 there is broad-based right subarticular disc protrusion with moderate left and moderate to severe right neural foraminal narrowing. There is canal stenosis mainly on the right side. Facet hypertrophy is noted. There is narrowing of the right lateral recess. There is impingement on the exiting and descending right-sided nerve roots. At L5-S1 there is broad-based central disc herniation with moderate left and severe right neural foraminal narrowing. There is impingement on the exiting right nerve root. No central canal stenosis is seen. Bilateral facet hypertrophy is noted. IMPRESSION: 1. Dextroscoliosis of the lumbar spine is seen. There is grade 1, 3 mm anterolisthesis of L5 with respect to S1. 2. At L1-2 there is mild right and moderate left neural foraminal narrowing. 3. At L2-3 there is a broad-based central disc herniation. Mild left and moderate to severe right neural foraminal narrowing is seen. 4. At L3-4 there is mild canal stenosis. Mild to moderate right and mild left neural foraminal narrowing is seen. 5. At L4-5 there is a broad-based right dorsal disc protrusion. There is moderate to severe right and moderate left neural foraminal narrowing. Right-sided canal stenosis is seen. There is also narrowing of the right lateral recess. There is impingement on the exiting and descending right-sided nerve roots. 6. At L5-S1 there is moderate left and severe right neural foraminal narrowing. There is impingement on the exiting right nerve root. 7. Bilateral facet hypertrophy seen throughout the lumbar spine. XR SPINE THORACIC 2 views, XR SPINE LUMBAR MIN 4 VIEWS 01/26/24 at [facility] INDICATION: Lumbar radiculopathy. Low back pain. COMPARISON: MR lumbar 11/27/2023. FINDINGS: THORACIC SPINE: There is mild dextroscoliosis of the thoracic spine. There is mild osteophyte formation present in the thoracic spine. There are no fractures or dislocations in the thoracic spine. LUMBAR SPINE: There is mild dextroscoliosis of the lumbar spine. There is mild osteophyte formation present lower visualized thoracic and lumbar spine. There is no evidence for spondylolysis in the lumbar spine. There is severe loss of disc space height at L1-2 which has worsened since MRI 11/27/2023. There is severe loss of disc space height at L2-3 which has worsened since MRI 11/27/2023. There is moderate loss of disc space height at L3-4 which is similar to that seen on MRI 11/27/2023. There is severe loss of disc space height at L4-5 which has worsened since MR 11/27/2023. There is severe loss of disc space height at L5-S1 which has worsened since MRI 11/27/2023. There is 0.6 cm of retrolisthesis of L3 with respect to L4, which is a new finding since MR 11/27/2023. There is 0.5 cm of anterolisthesis of L5 with respect to S1 which is similar to that seen on MRI 11/27/2023. Contrast is seen being excreted by the right and left kidneys from previously administered intravenous contrast IMPRESSION: 1.Mild dextroscoliosis of the thoracic spine. 2.Mild spondylosis of the thoracic spine. 3.Mild dextroscoliosis of the lumbar spine. 4.Mild spondylosis of the lumbar spine. 5.L1-2 and L2-3 intervertebral discs show severe degenerative disease, which has worsened since MRI 11/27/2023. 6.L3-4 intervertebral disc shows moderate degenerative disc disease, similar to that seen on MRI 11/27/2023. 7.L4-5 and L5-S1 intervertebral discs show severe degenerative disc disease which have worsened since MRI 11/27/2023. 8.There is 0.6 cm retrolisthesis of L3 with respect L4, a new finding since MRI 11/27/2023. 9.There is 0.5 cm anterolisthesis of L5 with respect S1 similar to that seen on MRI 11/27/2023. Assessment & Plan Assessment & Plan (1) Lumbar spinal stenosis: Code(s): M48.061 - Spinal stenosis, lumbar region without neurogenic claudication Category: Medical (2) Discogenic low back pain: Code(s): M51.360 - Other intervertebral disc degeneration, lumbar region with discogenic back pain only Category: Medical (3) Lumbar radicular pain: Code(s): M54.16 - Radiculopathy, lumbar region Category: Medical Plan A repeat epidural steroid injection has been discussed today to provide symptom relief. Will reach out to PCP office for most recent lab work, including A1C as patient mentions recent increase in his blood glucose levels. A referral to [facility] was issued aiming for further evaluation of the chronic pain and discussion about possible surgical interventions. Patient is aware to call if pain worsens or if he develops any red flag symptoms to seek emergency care. Patient denies any cauda equina syndrome symptoms at this time. A short script of oxycodone is refilled for patient's moderate-severe pain only. Side effects and precautions were discussed with patient. Patient was informed and verbally consented to the use of an ambient scribe for clinic note documentation during this visit. Orders: Referrals Neuro Spine Referral M48.061 - Spinal stenosis, lumbar region without neurogenic claudication, M51.360 - Other intervertebral disc degeneration, lumbar region with discogenic back pain only, M54.16 - Radiculopathy, lumbar region Medications: Changed From oxycodone Partial Fill upon patient request. 5 mg PO BID 10 days PRN 20 tabs 0RF pain (scale score 7-10) G89.29 - Other chronic pain, M48.061 - Spinal stenosis, lumbar region without neurogenic claudication, M51.36 - Other intervertebral disc degeneration, lumbar region, M54.41 - Lumbago with sciatica, right side, M54.42 - Lumbago with sciatica, left side To oxycodone Partial Fill upon patient request. 5 mg PO TID 10 days PRN 30 tabs 0RF pain (scale score 7-10) G89.29 - Other chronic pain, M48.061 - Spinal stenosis, lumbar region without neurogenic claudication, M51.36 - Other intervertebral disc degeneration, lumbar region, M54.41 - Lumbago with sciatica, right side, M54.42 - Lumbago with sciatica, left side Refilled naloxone 4 mg/actuation (Narcan) spray 1 dose into ONE nostril; alternate nostrils w each dose until help arrives 4 mg intranasal Q2M PRN 2 ea 0RF opioid overdose M48.061 - Spinal stenosis, lumbar region without neurogenic claudication Coding Level of Care Code Est Pt Level 4 (76419) Complex EM visit Add On G2211 Diagnoses Lumbar spinal stenosis M48.061 Discogenic low back pain M51.360 Lumbar radicular pain M54.16
== END 2024-07-26 11:52 | disposition home or self-care (01) ==
LOC: HO.PMC 11:05
PROVIDERS: PCP Nurse Practitioner; Visit Provider Nurse Practitioner Family
DX: M48.061 Spinal stenosis, lumbar region without neurogenic claudication (principal); M51.360 Other intervertebral disc degeneration, lumbar region with discogenic back pain only; M54.16 Radiculopathy, lumbar region
CPT/HCPCS: 99214

== ENCOUNTER → 2024-07-26 11:04 | Outpatient (BNVA) | payer MEDICAID, SELFPAY | PROVIDERS: PCP Nurse Practitioner; Visit Provider Nurse Practitioner Family | DX: M48.061 Spinal stenosis, lumbar region without neurogenic claudication (principal); M51.360 Other intervertebral disc degeneration, lumbar region with discogenic back pain only; M54.16 Radiculopathy, lumbar region; M54.42 Lumbago with sciatica, left side; G89.29 Other chronic pain | CPT/HCPCS: 99212 ==

== ENCOUNTER 2025-02-10 10:04 | Outpatient (REF) | payer MEDICAID, SELFPAY ==
[2025-02-10 14:18] LABS: Hematocrit 44.0 % (42.0-52.0); Hemoglobin 14.2 g/dl (14.0-18.0); Mean Corpuscular HGB Conc 32.3 g/dl (31.0-36.0); Mean Corpuscular Hemoglobin 28.3 pg (27.0-33.0); Mean Corpuscular Volume 87.8 fL (80.0-98.0); NRBC Abs Auto 0.000 X10*3/uL (0.0-0.012); NRBC Pct Auto 0.0 /100WBC (0.0-0.2); Platelet Count 370 X10*3/uL (160-400); Red Blood Count 5.01 X10*6/uL (4.60-5.80); White Blood Count 6.7 X10*3/uL (4.8-10.8)
[2025-02-10 14:42] LABS: Anion Gap 14 (12-20); Blood Urea Nitrogen 26 mg/dL (9-16); Calcium 9.0 mg/dL (8.4-10.2); Carbon Dioxide 26 mmol/L (22-29); Chloride 106 mmol/L (96-108); Estimated Glomerular Filt Rate 48; Potassium 4.5 mmol/L (3.3-5.1); Sodium 141 mmol/L (135-145); Uric Acid 6.9 mg/dL (3.4-7.0)
== END 2025-02-10 10:05 | disposition home or self-care (01) ==
LOC: HO.HKASLDS 10:04
PROVIDERS: PCP Dentist General Practice; Visit Provider Internal Medicine Hypertension Specialist
DX: N18.9 Chronic kidney disease, unspecified (principal)
CPT/HCPCS: 36415; 80048; 84550; 85027